=== PATIENT | female | born 1935 | race Caucasian/White ===

== ENCOUNTER 2016-12-14 09:49 | Inpatient (IN) | payer MEDICARE, OTHER ==
[2016-12-14] VITALS (10 sets, daily range): BP systolic 128–179; BP diastolic 69–86; PULSE 74–85; RESP 16–18; TEMP 98–98.8; O2SAT 90–96; Ht 162.6 cm; Wt 79.0 kg
[~2016-12-14] VITALS: Ht 162.6 cm; Wt 79.0 kg
[~2016-12-14 09:49] MED LIST: LISI1TAB45 PO; POTA10CA32 PO; [UNRECOGNIZED DRUG - CODE] PO
--- OUTSIDE RECORDS SUMMARY | 2016-12-14 09:56 | XMS REPORT | Continuity of Care Document ---
Author Author [facility] Organization [facility] Address Unknown Phone Unavailable Support Name Relationship Address Phone CAITY COOK MD Caregiver [address] [place] [id number] Unavailable BETTY ELY MD Caregiver [address] [place] [address] [place] [address] Unavailable DIMITRI SANCHEZ Next Of Kin Unknown [phone] Insurance Providers Guarantor Sammy Sanchez Address [address] [place], [place] [id number] Email DENIED/NO TO PORTAL Payer Other A Insurance Policy Number [id number] Subscriber's Name Sammy Sanchez Relationship 18 Self Group Number [id number] Effective Date 13 Payer Medicare Policy Number [id number] Subscriber's Name OrialonzoSammy J Relationship 18 Self Effective Date 00 Advance Directives Directive Response Recorded Date/Time Advanced Directives Type None 07/01/16 6:43am Chief Complaint and Reason for Visit Chief Complaint Chest Pain Reason for Visit [id number] Problems Past Problems Medical Problem Onset Date Non-ST elevation MD (NSTEMI) Unknown Medications Current Home Medications Medication Dose Units Route Directions Days Qty Instructions Start Date Lisinopril/Hydrochlorothiazide (Zestoretic 20/25 Tablet) 1 Tab Tablet 1 Tab Oral Daily 07/02/08 Potassium Chloride 10 Meq Capsule.sa 10 Meq Oral Daily 07/02/08 Verapamil Hcl (Isoptin Sr) 240 Mg Tablet.sa 240 Mg Oral Daily 11/04 Social History Social History Problem Response Recorded Date/Time Onset Date Status Hx Alcohol Use No 07/01/2016 7:04am Not Applicable Not Applicable Query Response Start Date Stop Date Smoking Status Never smoker Hospital Discharge Instructions No hospital discharge instructions. Plan of Care Discharge Date 07/01/16 8:04am Disposition 02 TO [facility] Condition at Discharge Stable Prescriptions See Medication Section Referrals CAITY COOK MD Address: [address] [place] [address] [phone] Functional Status No functional status results. Allergies, Adverse Reactions, Alerts Allergen Type Severity Reaction Status Last Updated Erythromycin base Allergy Unknown Active 07/01/16 Immunizations Query Response on File Recorded Date/Time Hx Influenza Vaccination Y 200707/02/08 9:09am Hx Pneumococcal Vaccination Y 5 YRS. AGO 07/02/08 9:09am Hx Influenza Vaccination Y 200707/02/08 9:09am Vital Signs Acute Vital Signs Vital Response Date/Time Temperature (Fahrenheit) 97.8 deg F (96.8 - 99.1) 07/01/2016 8:04am Temperature (Calculated Celsius) 36.97830 degrees C (36.0 - 37.3) 07/01/2016 8:04am Pulse Rate (adult) 98 bpm (60 - 100) 07/01/2016 8:04am Respiratory Rate 22 breaths/min (10 - 20) 07/01/2016 8:04am O2 Sat by Pulse Oximetry 97 % (90 - 100) 07/01/2016 8:04am Blood Pressure 149/70 mm Hg 07/01/2016 8:04am Height (Feet) 5 feet 07/01/2016 6:43am Height (Inches) 4.00 inches 07/01/2016 6:43am Weight (Kilograms) 84.500 kg 07/01/2016 6:43am Body Mass Index (BMI) 31.0 07/01/2016 6:43am Results Laboratory Results Test Name Result Units Flags Reference Collection Date/Time Result Date/ Time Comments White Blood Count 11.3 T/MM3 H 4.5-11.0 07/01/2016 7:01am 07/01/2016 7: 07am Red Blood Count 4.76 M/MM3 4.00-5.20 07/01/2016 7:01am 07/01/2016 7: 07am Hemoglobin 13.8 GM/DL -07/01/2016 7:01am 07/01/2016 7:07am Hematocrit 41.5 % 36-46 07/01/2016 7:01am 07/01/2016 7:07am Mean Corpuscular Volume 87.2 UM3 80-100 07/01/2016 7:01am 07/01/2016 7: 07am Mean Corpuscular Hemoglobin 29.0 UUG 26-34 07/01/2016 7:012015 7:07am Mean Corpuscular Hemoglobin Concent 33.3 GM/DL 31-37 07/01/2016 7:0107/01/2016 7:07am RDW Standard Deviation 42.4 FL 36.9-50.2 07/01/2016 7:01am 07/01/2016 7 :07am Platelet Count 256 T/MM3 130-400 07/01/2016 7:0107/01/2016 7:07am Mean Platelet Volume 9.2 UM3 L 9.4-12.4 07/01/2016 7:01am 07/01/2016 7: 07am Neutrophils (%) (Auto) 78.2 % H 33-66 07/01/2016 7:0107/01/2016 7: 07am Lymphocytes (%) (Auto) 14.2 % L 23-45 07/01/2016 7:0107/01/2016 7: 07am Monocytes (%) (Auto) 6.9 % 0-9.0 07/01/2016 7:0107/01/2016 7:07am Eosinophils (%) (Auto) 0.4 % 0-4 07/01/2016 7:0107/01/2016 7:07am Basophils (%) (Auto) 0.2 % 0-2 07/01/2016 7:0107/01/2016 7:07am Immature Granulocyte % (Auto) 0.1 % 0.0-0.5 07/01/2016 7:012015 7:07am Absolute Neutrophils (auto) 8.9 T/MM3 H 1.8-7.7 07/01/2016 7:012015 7:07am Absolute Lymphocytes (auto) 1.6 T/MM3 1-4.8 07/01/2016 7:01am 2015 7:07am Absolute Monocytes (auto) 0.8 T/MM3 0-0.8 07/01/2016 7:01am 07/01/2016 7:07am Absolute Eosinophils (auto) 0.1 T/MM3 0-0.5 07/01/2016 7:01am 2015 7:07am Absolute Basophils (auto) 0.0 T/MM3 0-0.2 07/01/2016 7:01am 07/01/2016 7:07am Absolute Immature Granulocyte (auto 0.01 T/MM3 0.00-0.03 07/01/2016 7: 01am 07/01/2016 7:07am Prothromb Time International Ratio 0.97 L 0.99-1.21 07/01/2016 7:01am 07/01/2016 7:23am THERAPUTIC RANGE=2.00-3.00 FOR ANTI-THROMBOSIS THERAPUTIC RANGE=2.50-3.50 FOR IMPLANTED VALVE D-Dimer 199 NG/ML 0-230 07/01/2016 7:01am 07/01/2016 7:23am <230 NG/ ML D-DU=PRESUMPTIVE NEGATIVE FOR PE OR DVT >230 NG/ML D-DU=ADDITIONAL EVAL FOR PE OR DVT RECOMMENDED Icterus Index < 2 0-7 07/01/2016 7:01am 07/01/2016 7:15am Chemistry Specimen Hemolysis < 15 0-25 07/01/2016 7:01am 07/01/2016 7 :15am 0-25: Specimen Exhibited No Hemolysis. Turbidity < 20 0-20 07/01/2016 7:01am 07/01/2016 7:15am Sodium Level 140 MEQ/L 134-144 07/01/2016 7:01am 07/01/2016 7:15am Potassium Level 3.3 MEQ/L L 3.6-5 07/01/2016 7:01am 07/01/2016 7:15am Chloride Level 96 MEQ/L L 98-107 07/01/2016 7:01am 07/01/2016 7:15am Carbon Dioxide Level 29 MEQ/L 22-30 07/01/2016 7:01am 07/01/2016 7: 15am Anion Gap 15 MEQ/L 5-15 07/01/2016 7:01am 07/01/2016 7:15am Blood Urea Nitrogen 13.0 MG/DL 7-17 07/01/2016 7:01am 07/01/2016 7: 15am Creatinine 0.6 MG/DL L 0.7-1.2 07/01/2016 7:01am 07/01/2016 7:15am BUN/Creatinine Ratio 22 RATIO 6-26 07/01/2016 7:01am 07/01/2016 7:15am Glomerular Filtration Rate Calc 96 07/01/2016 7:07/01/2016 7: 15am Glucose Level 149 MG/DL H 65-110 07/01/2016 7:07/01/2016 7:15am Calculated Osmolality 272 MOSM/KG 261-280 07/01/2016 7:07/01/2016 7:15am Calcium Level 9.9 MG/DL 8.4-10.2 07/01/2016 7:07/01/2016 7:15am Total Bilirubin 0.70 MG/DL 0.20-1.30 07/01/2016 7:07/01/2016 7: 15am Alkaline Phosphatase 101 U/L 38-126 07/01/2016 7:07/01/2016 7: 15am Total Protein 8.4 G/DL H 6.3-8.2 07/01/2016 7:07/01/2016 7:15am Albumin 4.5 G/DL 3.5-5.0 07/01/2016 7:07/01/2016 7:15am Globulin 3.9 G/DL H 2.4-3.6 07/01/2016 7:07/01/2016 7:15am Albumin/Globulin Ratio 1.2 RATIO 1.1-2.2 07/01/2016 7:07/01/2016 7 :15am Aspartate Amino Transf (AST/SGOT) 69 U/L H 14-36 07/01/2016 7:07/01 7:15am Alanine Aminotransferase (ALT/SGPT) 43 U/L 9-52 07/01/2016 7:07/01 7:15am Troponin I 2.180 ng/ml H 0-0.12 07/01/2016 7:07/01/2016 7:27am Troponin values greater than 0.120 ng/ml are considered a critical value. Troponin values with a difference of 55% increase from orginal troponin value represent a true biological DELTA value. (%increase Calc=Orginal Troponin value, divided by subsequent Troponin value, multiplied by 100) QN-Rqh-W-Type Natriuretic Peptide 2480 PG/ML H 0-175 07/01/2016 7:07/01/2016 7:27am Rule in cut points: <50 years old=450; 50-75 years old=900; >75 years old=1800; When utilizing ProBNP rule-in cut points, adjustment for impaired renal function is typically not required. Magnesium Level 1.8 MG/DL 1.6-2.3 07/01/2016 7:01am 07/01/2016 7:15am Procedures No known history of procedures. Encounters Encounter Location Arrival/Admit Date Discharge/Depart Date Attending Provider Departed Emergency Room [facility] 07/01/16 6:42am 07/01/16 8: 04am BETTY ELY MD Recent Diagnosis
--- OUTSIDE RECORDS SUMMARY | 2016-12-14 09:56 | XMS REPORT | Referral Summary ---
Author Author [facility] Organization [facility] Address Unknown Phone Unavailable Care Team Providers Care Clock And Watch Assembler Name Role Phone Maria Alejandra Miller Primary Care Physician [phone] Encounter Date(s): 07/01/16 - 07/07/16 [facility] [address] [place] [address] Discharge Diagnosis: Coronary artery disease Discharge Diagnosis: Non-STEMI (non-ST elevated myocardial infarction) Discharge Disposition: -[facility] Facility Attending Physician: Octavio Oconnell DO Admitting Physician: Mustapha Garland MD Vital Signs Most recent to 1 oldest [Reference Range]: Temperature Oral 36.4 degC [35.8-37.3 degC] (07/07/16 12:31 PM) Temperature Temporal 37.3 degC Artery [36.3-37.8 (07/05/16 8:00 PM) degC] Apical Heart Rate 148 bpm [60-100 bpm] *HI* (07/06/16 4:15 AM) Peripheral Pulse 93 bpm Rate [60-100 bpm] (07/07/16 12:31 PM) Peripheral Pulse 138 bpm Rate with Activity (07/06/16 9:03 AM) Heart Rate Monitored 100 bpm [60-100 bpm] (07/06/16 5:49 PM) Respiratory Rate 20 br/min [14-20 br/min] (07/07/16 12:31 PM) Blood Pressure 124/77 mmHg [90-140/60-90 mmHg] (07/07/16 12:31 PM) Systolic Blood 139 mmHg Pressure with (07/06/16 9:03 AM) Activity Diastolic Blood 83 mmHg Pressure with (07/06/16 9:03 AM) Activity Mean Arterial 106 mmHg Pressure, Cuff (07/05/16 8:00 PM) Blood Pressure 103/52 mmHg Invasive (07/03/16 2:00 PM) [90-140/60-90 mmHg] Mean Arterial 72 mmHg Pressure, Invasive (07/03/16 2:00 PM) SpO2 95 % (07/07/16 12:31 PM) Remote Telemetry Ongoing (07/06/16 9:00 PM) Problem List Condition Effective Dates Status Health Status Informant Acute Active pain(Confirmed) At risk of pressure Active sore(Confirmed) Benign essential Active hypertension (disorder)(Confirmed ) Cardiac Active disorder(Confirmed)1 Hypertension(Confirm Resolved ed) Impaired skin Active integrity(Confirmed) 2 Obesity(Confirmed) Active patient Tissue perfusion Active alteration(Confirmed )3 1Problem added automatically by system based on initiation of Cardiac Output/ Ineffective Cardiac Perfusion Plan of Care 2Problem added automatically by system based on initiation of Impaired Skin Integrity Plan of Care 3Problem added automatically by system based on initiation of Tissue Perfusion Cerebral Plan of Care Allergies, Adverse Reactions, Alerts Substance Reaction Severity Status erythromycin GI problems Active Medications acetaminophen 325 mg oral tablet 650 mg 2 tabs, Oral, q4hr, Fever, 0 Refill(s) Start Date: 07/07/16 Status: Ordered amiodarone 200 mg oral tablet 200 mg 1 tabs, Oral, BID, 0 Refill(s) Start Date: 07/07/16 Status: Ordered aspirin 81 mg oral delayed release tablet 81 mg 1 tabs, Oral, Daily, 0 Refill(s) Start Date: 07/07/16 Status: Ordered atorvastatin 80 mg oral tablet 80 mg 1 tabs, Oral, Daily, 0 Refill(s) Start Date: 07/07/16 Status: Ordered Colace 100 mg oral capsule 200 mg 2 caps, Oral, Daily, 0 Refill(s) Start Date: 07/07/16 Status: Ordered heparin 5000 units/mL injectable solution 5,000 units 1 mL, SubCutaneous, q8hr (scheduled), 0 Refill(s) Start Date: 07/07/16 Status: Ordered Lasix 20 mg oral tablet 20 mg 1 tabs, Oral, BID, 0 Refill(s) Start Date: 07/07/16 Stop Date: 07/14/16 Status: Ordered Maalox Advanced Maximum Strength oral suspension 15 mL, Oral, q4hr, GERD/Heartburn, 0 Refill(s) Start Date: 07/07/16 Status: Ordered magnesium oxide 400 mg (241.3 mg elemental magnesium) oral tablet 800 mg 2 tabs, Oral, BID, 0 Refill(s) Start Date: 07/07/16 Stop Date: 07/10/16 Status: Ordered metoprolol tartrate 25 mg oral tablet 25 mg 1 tabs, Oral, BID, 0 Refill(s) Start Date: 07/07/16 Status: Ordered MiraLax 17 g 1 packets, Oral, Daily, 0 Refill(s) Start Date: 07/07/16 Status: Ordered naloxone 0.4 mg/mL injectable solution 0.4 mg 1 mL, IV Push, Daily, Opiate Reversal, 0 Refill(s) Start Date: 07/07/16 Status: Ordered Nitrostat 0.4 mg sublingual tablet 0.4 mg 1 tabs, SubLingual, q5min, Angina/Chest Pain, 0 Refill(s) Start Date: 07/07/16 Status: Ordered Gallatin 5 mg-325 mg oral tablet 1-2 tabs, Oral, q4hr, Pain Moderate (4-6), # 50 tabs, 0 Refill(s) Start Date: 07/07/16 Stop Date: 07/15/16 Status: Ordered pantoprazole 40 mg oral delayed release tablet 40 mg 1 tabs, Oral, Before Breakfast, 0 Refill(s) Start Date: 07/07/16 Status: Ordered potassium chloride 20 mEq oral tablet, extended release 20 mEq 1 tabs, Oral, Daily, 0 Refill(s) Start Date: 07/07/16 Stop Date: 07/14/16 Status: Ordered Results Blood Gases Most recent to 1 oldest [Reference Range]: pH [7.35-7.45] 7.40 (07/03/16 5:14 AM) PCO2 Arterial POC 40 mmHg [35-45 mmHg] (07/02/16 5:32 PM) pCO2 Art [35-45 40 mmHg mmHg] (07/03/16 5:14 AM) CO2 Totl Art [23-27 26 mEq/L mEq/L] (07/02/16 5:32 PM) Bicarbonate [22-26 24 mEq/L mEq/L] (07/03/16 5:14 AM) Bicarbonate Arterial 25 mEq/L POC [22-26 mEq/L] (07/02/16 5:32 PM) Base Excess Arterial 0 POC [0-2] (07/02/16 5:32 PM) Base Excess Art 0 [0-2] (07/03/16 5:14 AM) O2 Sat Art 96.6 % [90.0-97.0 %] (07/03/16 5:14 AM) pO2 Art [80-100 87 mmHg mmHg] (07/03/16 5:14 AM) O2 Saturation 100.0 % Arterial POC *HI* [90.0-97.0 %] (07/02/16 5:32 PM) pH Arterial POC 7.40 [7.35-7.45] (07/02/16 5:32 PM) PO2 Arterial POC 408 mmHg [80-100 mmHg] *HI* (07/02/16 5:32 PM) LPM Art 2.0 L/min (07/03/16 5:14 AM) O2 Panel Nasal Cannula (07/03/16 5:14 AM) Vent Mode AC (07/02/16 6:14 PM) Set Vt 500 mL (07/02/16 6:14 PM) Set Rate 14 br/min (07/02/16 6:14 PM) FiO2 Art [0-100] 40 (07/02/16 9:02 PM) PEEP 5.0 (07/02/16 9:02 PM) Inspiratory Time Art 1.00 seconds (07/02/16 6:14 PM) Tubing Compensation 100 % (07/02/16 9:02 PM) Total Rate 14 br/min (07/03/16 5:14 AM) Spon Vt 464 mL (07/02/16 9:02 PM) Spec Site A-Line (07/03/16 5:14 AM) Hematology Most recent to 1 oldest [Reference Range]: WBC [4.8-10.8 10.2 10*3/uL 10*3/uL] (07/07/16 5:53 AM) RBC [4.00-5.20] 3.07 *LOW* (07/07/16 5:53 AM) Hgb [12.0-16.0 8.8 gm/dL gm/dL] *LOW* (07/07/16 5:53 AM) Hct [37.0-47.0 %] 27.1 % *LOW* (07/07/16 5:53 AM) MCV [82.0-99.0 fL] 88.3 fL (07/07/16 5:53 AM) MCH [27.0-32.0 pg] 28.7 pg (07/07/16 5:53 AM) MCHC [32.0-36.0 32.5 gm/dL gm/dL] (07/07/16 5:53 AM) RDW [11.5-14.5 %] 14.7 % *HI* (07/07/16 5:53 AM) Platelet [150-400 219 10*3/uL 10*3/uL] (07/07/16 5:53 AM) MPV [9.4-12.4 fL] 9.8 fL (07/07/16 5:53 AM) Coagulation Most recent to 1 oldest [Reference Range]: INR [0.9-1.2] 1.9 *HI* (07/02/16 4:46 PM) PTT [25.0-35.0 31.5 seconds seconds] (07/02/16 4:46 PM) Fibrinogen Lvl 203 mg/dL [187-520 mg/dL] (07/02/16 4:46 PM) Chemistry Most recent to 1 oldest [Reference Range]: Sodium Lvl [136-144 137 mEq/L mEq/L] (07/07/16 5:53 AM) Potassium Lvl 4.0 mEq/L [3.6-5.1 mEq/L] (07/07/16 5:53 AM) Chloride [99-109 102 mEq/L mEq/L] (07/07/16 5:53 AM) CO2 [22-32 mEq/L] 27 mEq/L (07/07/16 5:53 AM) AGAP [3-20] 8 (07/07/16 5:53 AM) BUN [4-20 mg/dL] 11 mg/dL (07/07/16 5:53 AM) Glucose Lvl [70-100 122 mg/dL mg/dL] *HI* (07/07/16 5:53 AM) Creatinine Lvl 0.59 mg/dL [0.44-1.03 mg/dL] (07/07/16 5:53 AM) eGFR [>60] >60 1 (07/07/16 5:53 AM) Calcium Lvl 8.5 mg/dL [8.6-10.0 mg/dL] *LOW* (07/07/16 5:53 AM) Albumin Lvl [3.5-4.8 2.6 gm/dL gm/dL] *LOW* (07/05/16 4:28 AM) Total Protein 7.1 gm/dL [6.1-7.9 gm/dL] (07/01/16 12:26 PM) Globulin [1.9-4.3 3.4 gm/dL gm/dL] (07/01/16 12:26 PM) ALT [14-54 U/L] 33 U/L (07/01/16 12:26 PM) AST [15-41 U/L] 113 U/L *HI* (07/01/16 12:26 PM) Alk Phos [26-104 83 U/L U/L] (07/01/16 12:26 PM) Bili Total [0.2-1.2 0.5 mg/dL 2 mg/dL] (07/01/16 12:26 PM) Magnesium Lvl 1.8 mg/dL [1.8-2.5 mg/dL] (07/07/16 5:53 AM) Phosphorus [2.4-4.7 1.7 mg/dL 3 mg/dL] *LOW* (07/05/16 4:28 AM) Calcium Ionized 1.24 mmol/L [1.19-1.41 mmol/L] (07/04/16 3:15 AM) Troponin [<0.06 27.45 ng/mL 4 ng/mL] *HHI* (07/02/16 6:00 PM) Sodium Arterial NPT 140 mEq/L [136-144 mEq/L] (07/02/16 5:32 PM) Potassium Arterial 2.9 mEq/L 5 NPT [3.6-5.1 mEq/L] *LOW* (07/02/16 5:32 PM) Calcium Ionized 1.03 mmol/L Arterial NPT *LOW* [1.19-1.41 mmol/L] (07/02/16 5:32 PM) HCT Arterial NPT 24.0 % (07/02/16 5:32 PM) HGB Arterial NPT 8.2 gm/dL (07/02/16 5:32 PM) Arterial Glucose NPT 149 mg/dL [70-100 mg/dL] *HI* (07/02/16 5:32 PM) Activated Clotting 137 seconds Time NPT [100-146 (07/02/16 4:46 PM) seconds] Blood Glucose, 202 mg/dL Capillary [74-106 *HI* mg/dL] (07/07/16 1:31 PM) Chol [0-200 mg/dL] 189 mg/dL (07/01/16 10:02 AM) Trig [0-150 mg/dL] 60 mg/dL (07/01/16 10:02 AM) HDL [>40 mg/dL] 49 mg/dL (07/01/16 10:02 AM) LDL [0-100 mg/dL] 128 mg/dL *HI* (07/01/16 10:02 AM) VLDL Cholesterol 12 mg/dL [0-30 mg/dL] (07/01/16 10:02 AM) Cardiac Risk 3.9 [0.0-5.0] (07/01/16 10:02 AM) Hgb A1c [4.1-5.6 %] 5.9 % *HI* (07/01/16 12:26 PM) eAvg Glucose 122.6 mg/dL (07/01/16 11:18 AM) 1Result Comment: Multiply eGFR results by 1.21 for race. 2Result Comment: Naproxen, specifically the metabolite O-desmethylnaproxen, may cause spurious elevation in Total Bilirubin levels. 3Result Comment: High dosages of liposomal Amphotericin B (AmBisome) therapy or other drug preparations that use a liposomal envelope to facilitate drug delivery may cause falsely elevated results for phosphorus. 4Result Comment: Critical value called, and read-back verified. Called to Daniella Smith RN ([id number]) 07/02/2016 20:14 5Result Comment: This test was performed on a whole blood specimen. The presence or absence of hemolysis cannot be assessed. Hemolysis can falsely elevate potassium levels. Normals are for venous specimens only. Urinalysis Most recent to 1 oldest [Reference Range]: UA Color Straw (07/01/16 12:56 PM) UA Appear Clear (07/01/16 12:56 PM) UA pH [5.0-8.0] 6.0 (07/01/16 12:56 PM) UA Leuk Est Negative [Negative] (07/01/16 12:56 PM) UA Nitrite Negative [Negative] (07/01/16 12:56 PM) UA Protein Negative [Negative] (07/01/16 12:56 PM) UA Glucose Negative [Negative] (07/01/16 12:56 PM) UA Ketones Trace [Negative] *ABN* (07/01/16 12:56 PM) UA Urobilinogen Negative [<1.0] (07/01/16 12:56 PM) UA Bili [Negative] Negative (07/01/16 12:56 PM) UA Blood [Negative] Pos 2+ *ABN* (07/01/16 12:56 PM) UA Spec Grav 1.030 [1.003-1.030] (07/01/16 12:56 PM) Type Clean Catch (07/01/16 12:56 PM) UA WBC [0-4] 2-5 (07/01/16 12:56 PM) UA RBC [0-2] 0-2 (07/01/16 12:56 PM) Epithelial Cells None Seen (07/01/16 12:56 PM) UA Bacteria None Seen (07/01/16 12:56 PM) UA Hyal Cast [0-3] 1-3 (07/01/16 12:56 PM) UA Mucous Present (07/01/16 12:56 PM) Blood Bank Results Most recent to 1 oldest [Reference Range]: ABO/Rh A POS (07/01/16 12:26 PM) Antibody Screen Tube NEG (07/01/16 12:26 PM) Immunizations Vaccine Date Refusal Reason influenza virus vaccine, inactivated 07/06/16 pneumococcal 23-polyvalent vaccine 01/22/12 tetanus-diphth toxoids (Td) adult/adol 12/31/06 zoster vaccine live 01/19/11 Procedures Procedure Date Related Diagnosis Body Site Bypass Graft Coronary Artery1 07/02/16 Stanley Vein Endoscopic (Left)2 07/02/16 Catheterization Left Heart with Coronary 07/01/16 Angiography3 1auto-populated from documented surgical case 2auto-populated from documented surgical case 3auto-populated from documented surgical case Social History Social History Type Response Smoking Status Never smoker Assessment and Plan No data available for this section
--- NOTE | 2016-12-14 10:10 | NUR ---
EKG OBTAINED AND RESULTS GIVEN TO
[2016-12-14] MEDS ORDERED: NITR0.4T39 PO (10:22)
[2016-12-14] MEDS ORDERED: AMIO200T2 PO (10:22)
[2016-12-14] MEDS ORDERED: LORA0.5T2 PO (10:22)
[2016-12-14] MEDS ORDERED: METO50TA5 PO (10:24)
[2016-12-14] MEDS ORDERED: LOSA100T44 PO (10:24)
[2016-12-14] MEDS ORDERED: VENL-67 PO (10:24)
[2016-12-14] MEDS ORDERED: ATOR80TA76 PO (10:24)
[2016-12-14] MEDS ORDERED: ACET-62 PO (10:25)
--- NOTE | 2016-12-14 10:48 | ERPDOC ---
Departure Impression Impression Referrals: CAITY COOK MD (Family) Mental Status: Alert, Oriented HPI - Dyspnea General Chief Complaint: Dyspnea/Respdistress Stated Complaint: O2 LEVEL LOW Time Seen by Provider: 10:47 HPI - Dyspnea Initial Comments 81-year-old female with sudden onset of shortness of breath. 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 She has done very well since that time. But now is develop shortness of breath. No fever or chills, no chest pain at this time. Allergies: Coded Allergies: erythromycin base (Verified Allergy, Unknown, 07/01/16) Past History Past Medical History Metabolic: hypertension Vaccines Hx Influenza Vaccination: Yes (2007) Hx Pneumococcal Vaccination: Yes (5 YRS. AGO) Social History Substance Use Type: does not use Alcohol Intake: none Physical Exam General Vitals and Pain Weight: Kilograms: Height (feet): 5 Height (inches): 4.00 Triage Pain Scale: EV HAYS MD December 14, 2016 10:48
[2016-12-14] MEDS ORDERED: NORMAL SALINE 1,000 ML IV ONE (10:50)
[2016-12-14] MEDS ORDERED: ALBUTEROL/IPRATROPIUM INHAL. 2.5mg-0.5mg/3ml Neb. AEROSOL ONE (11:00)
[2016-12-14 11:42] LABS: HCT - HEMATOCRIT 36.7 % (36-46); HGB - HEMOGLOBIN 11.9 GM/DL (12-16); MEAN CORPUSCULAR HGB 28.3 UUG (26-34); MEAN CORPUSCULAR HGB CONC(MCHC 32.4 GM/DL (31-37); MEAN CORPUSCULAR VOLUME 87.2 UM3 (80-100); MEAN PLATELET VOLUME 10.2 UM3 (9.4-12.4); RED BLOOD COUNT 4.21 M/MM3 (4.00-5.20); WBC - WHITE BLOOD COUNT 15.4 T/MM3 (4.5-11.0)
--- NOTE | 2016-12-14 11:44 | NUR ---
RETURNED FROM RADIOLOGY
[2016-12-14 11:49] LABS: INR 1.16 (0.77-1.03); PROTHROMBIN TIME 12.7 SEC (9.48-12.52)
[2016-12-14 11:51] LABS: ALBUMIN 3.7 G/DL (3.5-5.0); ALBUMIN/GLOBULIN RATIO 1.1 RATIO (1.1-2.2); ALKALINE PHOSPHATASE 137 U/L (38-126); ALT (SGPT) 102 U/L (9-52); ANION GAP 14 MEQ/L (5-15); AST (SGOT) 70 U/L (14-36); BUN/CREATININE RATIO 22 RATIO (6-26); CALCIUM 9.1 MG/DL (8.4-10.2); CHLORIDE 101 MEQ/L (98-107); CO2 - CARBON DIOXIDE 29 MEQ/L (22-30); CREATININE 0.5 MG/DL (0.7-1.2); GLOMERULAR FILTRATION RATE 118; GLUCOSE 152 MG/DL (65-110); POTASSIUM 3.3 MEQ/L (3.6-5); SODIUM 144 MEQ/L (134-144)
[2016-12-14 11:59] LABS: BAND NEUTROPHILS # 0.2 T/MM3; BASOPHILS # (MANUAL) 0.2 T/MM3 (0-0.2); LYMPHOCYTES # (MANUAL) 0.8 T/MM3 (1-4.8); MONOCYTES # (MANUAL) 1.1 T/MM3 (0-0.8); NEUTROPHILS #(MANUAL)-ABSOLUTE 13.2 T/MM3 (1.8-7.7); POIKILOCYTOSIS 1+; TOTAL CELLS COUNTED 100 %
--- NOTE | 2016-12-14 12:01 | DI ---
INDICATION: ITS.REASON: dyspnea PROCEDURE: CHEST 2-VIEWS UPRIGHT (PA \T\ LAT) Encounter: Initial COMPARISON: July 01, 2016 FINDINGS: Patchy airspace and interstitial opacities throughout both lungs with a perihilar predominance. No pneumothorax or pleural effusion. Postoperative changes of prior CABG, new from the prior. Cardiac silhouette is mildly enlarged. Mediastinal contours and pulmonary vascularity are indistinct. Impression: Bilateral patchy airspace and interstitial opacities could be due to pulmonary edema and/or severe pneumonia. Recommend clinical and laboratory correlation. .
[2016-12-14 12:03] LABS: PROBNP 4820 PG/ML (0-175)
[2016-12-14] MEDS ORDERED: SALINE FLUSH 10ml SYRINGE ONE (12:07)
[2016-12-14] MEDS ORDERED: NORMAL SALINE 100 ML ONE (12:07)
[2016-12-14] MEDS ORDERED: IOHEXOL 350 MG/ML 75ml INJECTION ONE (12:07)
--- NOTE | 2016-12-14 12:39 | DI ---
Indication: ITS.REASON: acute dyspnea, elevated d-dimer PROCEDURE: CTA PULMONARY EMBOLI: Encounter: Initial Comparison: Chest x-ray from today Technique: Axial CT pulmonary angiographic phase images were performed through the chest after the administration of intravenous contrast. Coronal and Sagittal MIP reconstructed images were created and reviewed. Automated Exposure Control and Iterative Reconstruction dose reducing techniques were utilized. Contrast: Omnipaque 350 70 mL Findings: Pulmonary arteries: Exam is diagnostic to the subsegmental pulmonary arterial level. No filling defects identified to suggest a pulmonary embolus. Other findings: Diffuse groundglass type opacities with evidence of interlobular septal thickening seen with a basilar and perihilar predominance. There is some mild bronchiectasis noted in both lower lobes, likely chronic. No pleural effusion or pneumothorax. The central airways are patent. No axillary or mediastinal adenopathy. Heart is moderately enlarged. No pericardial effusion. Prior CABG. The upper abdomen shows no acute findings. Impression: 1. No pulmonary embolus. 2. Diffuse groundglass opacities and areas of septal thickening with a pattern most suggestive of moderate pulmonary edema, probably due to congestive failure. .
--- NOTE | 2016-12-14 13:00 | NUR ---
STATUS ASSISTED PATIENT TO BATHROOM AT THIS TIME. SOME RESP. DISTRESS NOTED. PATIENT CONTINUES TO BE ON 2 LITERS PER NC
[2016-12-14] MEDS ORDERED: CEFTRIAXONE I.V. (ER USE ONLY) 1 G in NORMAL SALINE 100 ML IV ONE (14:00)
--- NOTE | 2016-12-14 14:02 | NUR ---
ROCEPHIN IV INFUSION STARTED AT THIS TIME
[2016-12-14] MEDS ORDERED: AZITHROMYCIN 500 MG in NORMAL SALINE 250 ML IV SCH (14:15)
[2016-12-14] MEDS ORDERED: FUROSEMIDE 20 MG/2 ML INJECTION IV ONE (14:15)
--- NOTE | 2016-12-14 14:21 | HPPDOC ---
RHODA HERNÁNDEZ V SALES NEGOTIATOR 12/14/16 1410: HPI - Adult Date DATE: 12/14/16 TIME: 14:07 General Chief Complaint: SHORTNESS OF BREATH History of Present Illness Ruth is a 81 yr old female who presented to PCP Dr Miller office today for evaluation. She was found to be hypoxia in the 60's. She was then sent to [facility] emergency room for further medical evaluation. On arrival to the emergency room. She was found to be hypoxic with room air saturations of 78%. Her temperature is 99.8, pulse rate in the 60s, respiration rate 24, blood pressure was elevated at 196/88. Further medical evaluation was obtained , including laboratory studies, chest x-ray and CT scan. Patient was found have an elevated white count at 15.4, hemoglobin 11.9, hematocrit 36.7, platelet count 309, neutrophils 86%. Sodium is 144, potassium 3.3, BUN 11, creatinine 0.5, glucose 152. LFTs were found to be elevated with AST of 70 and ALT of 102. ProBNP 4820, troponin 0.019. INR 1.16, d-dimer 414. Chest x-ray did reveal bilateral patchy airspace opacities representing edema or pneumonia. Given her significant hypoxia and elevated d-dimer. ABG revealed pH 7.52, pCO2 36, pO2 65, bicarbonate 29. A CT scan of the chest was performed. No evidence of pulmonary emboli. However, again, diffuse groundglass opacities bilaterally. Continue to require oxygen by nasal cannula to maintain adequate saturations. She did get up and ambulate to the bathroom with staff. However, upon returning sats did decrease to 70%. Patient approximately 15 minutes on oxygen to recover to normal saturations. Given these findings, Hospital services were contacted and accepted patient for inpatient mission for further eval patient and treatment. Seen on initial examination. She is alert, oriented and pleasant. She reports that she has felt more short of breath for the last 2-3 days. She denies having any fevers or chills, no chest pain, or GI complaints. She states that she sees Dr. 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 She reports that she had an echocardiogram in the beginning of 2016. She states that overall she has been doing well since her bypass in June 2016. Her Lasix has been discontinued by the potato peeling machine operator as she was instructed that she did not need it any longer. 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 Surgical History Patient's Surgical History: 3 Bypass- 06/2016 Heart catheter-06/2016 Tonsillectomy age 5 Current Medications Home Meds Reported Medications Acetaminophen (Acetaminophen) 500 Mg Tablet, 1000 MG PO Q8H Y for PAIN 12/14/16 Venlafaxine HCl (Venlafaxine HCl ER) 37.5 Mg Cap.er.24h, 37.5 MG PO HS 12/14/16 Atorvastatin Calcium (Atorvastatin Calcium) 80 Mg Tablet, 80 MG PO HS 12/14/16 Losartan Potassium (Losartan Potassium) 100 Mg Tablet, 50 MG PO BID 12/14/16 Metoprolol Tartrate (Metoprolol Tartrate) 50 Mg Tablet, 50 MG PO BID 12/14/16 Lorazepam (Lorazepam) 0.5 Mg Tablet, 0.5 MG PO TID Y for ANXIETY 12/14/16 Nitroglycerin (Nitroglycerin) 0.4 Mg Tab.subl, 0.4 MG PO Q5MIN Y for CHEST PAIN 12/14/16 Amiodarone HCl (Amiodarone HCl) 200 Mg Tablet, 200 MG PO BID 12/14/16 Allergies: Coded Allergies: erythromycin base (Verified Allergy, Unknown, 07/01/16) Family History Family History: Father- stated age 69. Unknown cause, questionable cardiac Mother-hypertension Social History Smoking Status: Never smoker Substance Use Type: does not use Alcohol Intake: none Marital Status: Single Housing: house Advance Directives: Yes DNR Social History Comments Primary care provider, Dr. Miller Vp Sales Dr Gui Oconnell Review of Systems Cardiovascular dyspnea on exertion Pulmonary Respiratory: dyspnea, tachypnea All Other Systems All Other Systems: Reviewed (remainder of 10-point ROS Neg.) Physical Exam General General Nourishment: well nourished, well developed Vital Signs Vital Signs Date Time Temp Pulse Resp B/P Pulse Ox O2 Delivery O2 Flow Rate FiO2 12/14/16 11:24 20 12/14/16 11:18 67 95 Nasal Cannula 2.00 12/14/16 09:50 99.8 196/88 Height (Feet): 5 Height (Inches): 4.00 Eyes Brief: FOUND: EOMI, PERRL ENMT Brief: FOUND: mucosa moist, normal dentition, NOT FOUND: pharnyx erythema Neck Brief: FOUND: midline, NOT FOUND: adenopathy, carotid bruits, tracheal deviation Comments Course bilateral bases Cardiovascular (brief) Cardiac Brief: FOUND: regular rate, regular rhythm, NOT FOUND: murmur, pedal edema Abdomen (brief) Abdominal Brief: FOUND: BS normo active x4, soft, NOT FOUND: distended, tender Integumentary (brief) Integumentary Brief: FOUND: dry, pink, warm Neurologic (brief) Neurological Brief: FOUND: cranial 2-12 intact Neurologic RN Documented GCS Eye Opening: Verbal: Motor: Total: Psychiatric (brief) FOUND: alert, attentive, normal affect, oriented Laboratory Laboratory Tests Test 12/14/16 11:04 12/14/16 12:52 White Blood Count 15.4T/MM3 Red Blood Count 4.21M/MM3 Hemoglobin 11.9GM/DL Hematocrit 36.7% Mean Corpuscular Volume 87.2UM3 Mean Corpuscular Hemoglobin 28.3UUG Mean Corpuscular Hemoglobin Concent 32.4GM/DL RDW Standard Deviation 50.3FL Platelet Count 309T/MM3 Mean Platelet Volume 10.2UM3 Immature Granulocyte % (Auto) % Neutrophils (%) (Auto) % Lymphocytes (%) (Auto) % Monocytes (%) (Auto) % Eosinophils (%) (Auto) % Basophils (%) (Auto) % Absolute Immature Granulocyte (auto T/MM3 Absolute Neutrophils (auto) T/MM3 Absolute Lymphocytes (auto) T/MM3 Absolute Monocytes (auto) T/MM3 Absolute Eosinophils (auto) T/MM3 Absolute Basophils (auto) T/MM3 Neutrophils % (Manual) 86.0% Band Neutrophils % 1.0% Lymphocytes % (Manual) 5.0% Monocytes % (Manual) 7.0% Basophils % (Manual) 1.0% Absolute Neutrophils (Manual) 13.2T/MM3 Band Neutrophils # 0.2T/MM3 Lymphocytes # (Manual) 0.8T/MM3 Monocytes # (Manual) 1.1T/MM3 Basophils # (Manual) 0.2T/MM3 Poikilocytosis 1+ Red Cell Morphology Comment Abnormal Prothromb Time International Ratio 1.16 D-Dimer 414NG/ML Turbidity < 20 Sodium Level 144MEQ/L Potassium Level 3.3MEQ/L Chloride Level 101MEQ/L Carbon Dioxide Level 29MEQ/L Anion Gap 14MEQ/L Blood Urea Nitrogen 11.0MG/DL Creatinine 0.5MG/DL Glomerular Filtration Rate Calc 118 BUN/Creatinine Ratio 22RATIO Glucose Level 152MG/DL Calculated Osmolality 279MOSM/KG Calcium Level 9.1MG/DL Total Bilirubin 1.00MG/DL Icterus Index < 2 Aspartate Amino Transf (AST/SGOT) 70U/L Alanine Aminotransferase (ALT/SGPT) 102U/L Alkaline Phosphatase 137U/L Troponin I 0.019ng/ml VS-Pxw-N-Type Natriuretic Peptide 4820PG/ML Total Protein 7.0G/DL Albumin 3.7G/DL Globulin 3.3G/DL Albumin/Globulin Ratio 1.1RATIO Chemistry Specimen Hemolysis < 15 Arterial Blood pH 7.520 Arterial Blood Partial Pressure CO2 36MMHG Arterial Blood pO2 at Patient Temp 65MMHG Arterial Blood HCO3 29MEQ/L Arterial Blood Total CO2 30.5MEQ/L Arterial Blood Oxygen Saturation 95.0% Arterial Blood Base Excess 6.3MMOL/L Oxygen Delivery Method (LAB) Nasal cannula,liters Blood Gas Oxygen Liter Flow 2 Blood Gas Oxygen Percent Given Blood Gas Vent Rate Blood Gas Tidal Volume ML Assessment & Plan Problems: (1) Sepsis Status: Acute Assessment & Plan: Manifestations of sepsis include the following 1. Pneumonia 2. Respiratory failure with hypoxia requiring oxygen to maintain saturations 3. Leukocytosis, WBC count 15 (2) CAP (community acquired pneumonia) Status: Acute (3) Respiratory failure with hypoxia Status: Acute Qualifiers: Chronicity: acute Qualified Codes: J96.01 - Acute respiratory failure with hypoxia (4) Leukocytosis Status: Acute Assessment & Plan: Present on admission (5) Elevated LFTs Status: Acute (6) Hypokalemia Status: Acute Assessment & Plan: Present on admission (7) CAD (coronary artery disease) of bypass graft Status: Chronic (8) HTN (hypertension) Status: Chronic Plan/Intensity of Service Admit patient to inpatient status under the care of Dr. Hough for sepsis, community-acquired pneumonia with hypoxia Patient does meet sepsis criteria, given findings of pneumonia, hypoxia and leukocytosis. Will obtain venous lactate and pro-calcitonin on admission. Blood cultures were obtained in the emergency room. Patient started on Rocephin 1 gram IV daily as well as a azithromycin 500 milligrams IV daily for antimicrobial coverage. Will monitor elevated LFTs. It may be elevated from systemic response to sepsis process Continue with oxygen therapy to maintain adequate saturations. Will also scheduled DuoNeb breathing treatments 4 times a day Will obtain an Echocardiogram for further cardiac evaluation Give a one time dose of Lasix 20 mg IV for fluid motivation. May need scheduled diuresis seen. Monitor patient on cardiac telemetry SCDs to bilateral lower ext for DVT prophylaxis Have asked nursing staff to old records from [facility]'s office. Patient states that she did have a ECHO in the beginning 2016. Recehck CBC and CMP tomorrow to follow blood counts, renal function, electrolytes and LFT. PORT score mortality risk indicator showing 9.3% of mortality related to infection Again patient requests DNR and this order is written. Will discuss further plan of care with attending, Dr. Hough. At time of discharge medical care will return to primary care provider, Dr. Miller DVT Prophylaxis: SCD'S Code Status DNR Hospital Course Summary Disclaimer The hospital course summary below is not to be considered part of the above Progress Note. Hospital Course Summary Admit patient to inpatient status under the care of Dr. Hough for sepsis, community-acquired pneumonia with hypoxia Patient does meet sepsis criteria, given findings of pneumonia, hypoxia and leukocytosis. Will obtain venous lactate and pro-calcitonin on admission. Blood cultures were obtained in the emergency room. Patient started on Rocephin 1 gram IV daily as well as a azithromycin 500 milligrams IV daily for antimicrobial coverage. Will monitor elevated LFTs. It may be elevated from systemic response to sepsis process Continue with oxygen therapy to maintain adequate saturations. Will also scheduled DuoNeb breathing treatments 4 times a day Will obtain an Echocardiogram for further cardiac evaluation Give a one time dose of Lasix 20 mg IV for fluid motivation. May need scheduled diuresis seen. Monitor patient on cardiac telemetry SCDs to bilateral lower ext for DVT prophylaxis Have asked nursing staff to old records from [facility]'s office. Patient states that she did have a ECHO in the beginning 2016. Recehck CBC and CMP tomorrow to follow blood counts, renal function, electrolytes and LFT. PORT score mortality risk indicator showing 9.3% of mortality related to infection Again patient requests DNR and this order is written. Will discuss further plan of care with attending, Dr. Hough. At time of discharge medical care will return to primary care provider, ALLYSON Gillespie MD 12/14/162001: Past Medical History Current Medications Home Meds Reported Medications Acetaminophen (Acetaminophen) 500 Mg Tablet, 1000 MG PO Q8H Y for PAIN 12/14/16 Venlafaxine HCl (Venlafaxine HCl ER) 37.5 Mg Cap.er.24h, 37.5 MG PO HS 12/14/16 Atorvastatin Calcium (Atorvastatin Calcium) 80 Mg Tablet, 80 MG PO HS 12/14/16 Losartan Potassium (Losartan Potassium) 100 Mg Tablet, 50 MG PO BID 12/14/16 Metoprolol Tartrate (Metoprolol Tartrate) 50 Mg Tablet, 50 MG PO BID 12/14/16 Lorazepam (Lorazepam) 0.5 Mg Tablet, 0.5 MG PO TID Y for ANXIETY 12/14/16 Nitroglycerin (Nitroglycerin) 0.4 Mg Tab.subl, 0.4 MG PO Q5MIN Y for CHEST PAIN 12/14/16 Amiodarone HCl (Amiodarone HCl) 200 Mg Tablet, 200 MG PO BID 12/14/16 Allergies: Coded Allergies: erythromycin base (Verified Allergy, Unknown, 07/01/16) Assessment & Plan Assessment Patient seen and examined in conjunction with nurse practitioner actually Jethro . Patient does have significant hypoxia but does not have a very toxic appearance and I believe that the majority of her dyspnea is secondary to her congestive heart failure. Appreciation to Dr. Chavez for his participation in this patient's cardiac care. She does meet sepsis criteria and will have antibiotics run, however it quickly normalizing leukocytosis and lack of fever would be further evidence of CHF being predominant. Use IV fluids should be cautious and fluid resuscitation at 30 mg per kilogram should be avoided at this time. Patient certainly meets inpatient criteria, and will likely take 2 to 3 days to improved transitioned home RHODA HERNÁNDEZ APRN December 14, 2016 14:10 ALLYSON HOUGH MD December 14, 2016 20:02
--- NOTE | 2016-12-14 14:30 | NUR ---
ADMIT PATIENT IS ADMITTED FROM THE ER. ARRIVES TO ROOM 155 PER CART. ON 3 L NC. RUNS HIGH BP AT THIS TIME. PATIENT IS ALERT AND ORIENTED. ROCEPHIN IS INFUSING FROM ER. PATIENT IS AMBULATORY WITH ONE ASSIST. PATIENT IS ORIENTED TO ROOM AND SURROUNDING ENVIRONMENT.
[2016-12-14] MEDS ORDERED: POTASSIUM CHLORIDE 20 MEQ TABLET PO ONE (15:30)
--- NOTE | 2016-12-14 15:47 | NUR ---
Allergy Note: Patient indicated she had an adverse reaction (severe vomting)to erythromycin. Azithromycin 500 mg iv every 24 hours was ordered. Since they are both macrolides and both can cause vomiting, I called Afia Morelos, the ordering provider, and discussed the issue. She decided to discontinue the azithromycin. Rustam Valencia, Pharmacist
[2016-12-14] MEDS: BUMETANIDE 2.5mg INJECTION IV SCH (16:20)
[2016-12-14] MEDS: LEVOFLOXACIN 500 mg IVPB 500 MG in D5W 100 ML IV SCH (16:37)
[2016-12-14] MEDS: ALBUTEROL/IPRATROPIUM INHAL. 2.5mg-0.5mg/3ml Neb. AEROSOL SCH ×2 (16:54→20:50)
--- NOTE | 2016-12-14 17:14 | CONSPD ---
KALANI ROBERTS HELIARC WELDER 12/14/16 1645: Consultation Info Date DATE: 12/14/16 TIME: 16:42 Date of Consultation: December 14, 2016 Attending Physician: Christos Burt MD HPI - Adult Date DATE: 12/14/16 TIME: 16:42 General Date of Admission Date of Admission: December 14, 2016 at 13:27 Chief Complaint: SHORTNESS OF BREATH History of Present Illness Ruth is a 81 yr old female who presented to PCP Dr Miller office today for evaluation. She was found to be hypoxia in the 60's. She was then sent to [facility] emergency room for further medical evaluation. On arrival to the emergency room. She was found to be hypoxic with room air saturations of 78%. Her temperature is 99.8, pulse rate in the 60s, respiration rate 24, blood pressure was elevated at 196/88. Further medical evaluation was obtained , including laboratory studies, chest x-ray and CT scan. Patient was found have an elevated white count at 15.4, hemoglobin 11.9, hematocrit 36.7, platelet count 309, neutrophils 86%. Sodium is 144, potassium 3.3, BUN 11, creatinine 0.5, glucose 152. LFTs were found to be elevated with AST of 70 and ALT of 102. ProBNP 4820, troponin 0.019. INR 1.16, d-dimer 414. Chest x-ray did reveal bilateral patchy airspace opacities representing edema or pneumonia. Given her significant hypoxia and elevated d-dimer. ABG revealed pH 7.52, pCO2 36, pO2 65, bicarbonate 29. A CT scan of the chest was performed. No evidence of pulmonary emboli. However, again, diffuse groundglass opacities bilaterally. Continue to require oxygen by nasal cannula to maintain adequate saturations. She did get up and ambulate to the bathroom with staff. However, upon returning sats did decrease to 70%. Patient approximately 15 minutes on oxygen to recover to normal saturations. Given these findings, Hospital services were contacted and accepted patient for inpatient mission for further eval patient and treatment. Seen on initial examination. She is alert, oriented and pleasant. She reports that she has felt more short of breath for the last 2-3 days. She denies having any fevers or chills, no chest pain, or GI complaints. She states that she sees Dr. Octavio Oconnell patient relations representative in [place]. She reports that she had an echocardiogram in the beginning of 2016. She states that overall she has been doing well since her bypass in June 2016. Her Lasix has been discontinued by the patient relations representative as she was instructed that she did not need it any longer. Past Medical History Past Medical History Metabolic: hypertension Surgical History General: tonsils Cardiac: cardiac bypass (2015) Current Medications Home Meds Active Scripts Meropenem-0.9% Sodium Chloride (Meropenem-0.9% NaCl 1 Gram/50) 1 Gm/50 Ml Piggyback, 1 G IV Q8H for 7 Days Prov:RHODA HERNÁNDEZ APRN 12/17/16 Methylprednisolone Sod Succ/Pf (Solu-Medrol 125 mg Vial) 125 Mg/2 Ml Vial, 125 MG IV Q6HR for 7 Days, VIAL Prov:RHODA HERNÁNDEZ APRN 12/17/16 Guaifenesin (Mucus Relief) 400 Mg Tablet, 400 MG PO BID for 10 Days, #20 TAB Prov:RHODA HERNÁNDEZ APRN 12/17/16 Potassium Chloride (Klor-Con M20) 20 Meq Tablet, 20 MEQ PO WB for 10 Days, #10 TAB Prov:RHODA HERNÁNDEZ APRN 12/17/16 Bumetanide (Bumetanide) 1 Mg Tablet, 1 MG PO TID for 10 Days, #30 TAB Prov:RHODA HERNÁNDEZ APRN 12/17/16 Aspirin *EC* (Aspirin EC) 81 Mg Tablet.dr, 81 MG PO DAILY for 10 Days, #10 TAB Prov:RHODA HERNÁNDEZ APRN 12/17/16 Enoxaparin Sodium (Lovenox) 40 Mg/0.4 Ml Inj, 40 MG SQ DAILY for 10 Days Prov:RHODA HERNÁNDEZ APRN 12/17/16 Ipratropium/Albuterol Sulfate (Iprat-Albut 0.5-3(2.5) mg/3 ml) 3 Ml Ampul.neb, 3 ML AEROSOL RTQID for 30 Days Prov:RHODA HERNÁNDEZ APRN 12/17/16 Reported Medications Acetaminophen (Acetaminophen) 500 Mg Tablet, 1000 MG PO Q8H Y for PAIN 12/14/16 Venlafaxine HCl (Venlafaxine HCl ER) 37.5 Mg Cap.er.24h, 37.5 MG PO HS 5/18/17 Losartan Potassium (Losartan Potassium) 100 Mg Tablet, 50 MG PO BID 12/14/16 Metoprolol Tartrate (Metoprolol Tartrate) 50 Mg Tablet, 50 MG PO BID 12/14/16 Lorazepam (Lorazepam) 0.5 Mg Tablet, 0.5 MG PO TID Y for ANXIETY 12/14/16 Nitroglycerin (Nitroglycerin) 0.4 Mg Tab.subl, 0.4 MG PO Q5MIN Y for CHEST PAIN 12/14/16 Discontinued Reported Medications Atorvastatin Calcium (Atorvastatin Calcium) 80 Mg Tablet, 80 MG PO HS 12/14/16 Amiodarone HCl (Amiodarone HCl) 200 Mg Tablet, 200 MG PO BID 12/14/16 Allergies: Coded Allergies: erythromycin base (Verified Allergy, Unknown, 07/01/16) Family History FOUND: CAD (reported COD father), hypertension (mother) Vaccines June Social History Smoking Status: Never smoker Substance Use Type: does not use Alcohol Intake: none Marital Status: Single Housing: house Current Occupational Status: retired Advance Directives: Yes DNR, Yes DPOA for Healthcare Only (Gatito Bhakta, son) Review of Systems Constitutional: DENIES: chills, dizziness, fever, weakness Eyes Vision: DENIES: vision changes ENMT Hearing: DENIES: tinnitus Balance: DENIES: vertigo Sinuses: NOT FOUND: rhinorrhea Mouth/Throat: DENIES: sore throat Cardiovascular dyspnea on exertion, DENIES: chest pain, murmur Rhythm/Rate: DENIES: irregular beat, palpitations Pulmonary Respiratory: DENIES: cough, sputum GI Upper Abdomen: DENIES: nausea, vomiting Lower Abdomen: DENIES: diarrhea General: DENIES: dysuria Neurological General: DENIES: headache, numbness, syncope, weakness All Other Systems All Other Systems: Reviewed (remainder of 10-point ROS Neg.) Physical Exam General General Nourishment: well nourished, well developed, apparent age Vital Signs Vital Signs Date Time Temp Pulse Resp B/P Pulse Ox O2 Delivery O2 Flow Rate FiO2 12/14/16 14:47 92 Nasal Cannula 3.00 12/14/16 14:40 98.0 78 18 154/72 Height (Feet): 5 Height (Inches): 4.00 Telemetry Rhythm: Sinus Rhythm ENMT Brief: FOUND: mucosa moist Neck Brief: NOT FOUND: JVD, carotid bruits Respiratory Brief: FOUND: equal bilaterally, rales, NOT FOUND: clear all carrillo , wheezes Cardiovascular (brief) Cardiac Brief: FOUND: regular rate, regular rhythm, NOT FOUND: pedal edema Abdomen (brief) Abdominal Brief: FOUND: BS normo active x4, soft, NOT FOUND: tender Integumentary (brief) Integumentary Brief: FOUND: dry, pink, warm Neurologic RN Documented GCS Eye Opening: Verbal: Motor: Total: Psychiatric (brief) FOUND: alert, attentive, oriented Laboratory Laboratory Tests Test 12/14/16 11:04 12/14/16 12:52 12/14/16 14:16 White Blood Count 15.4T/MM3 Red Blood Count 4.21M/MM3 Hemoglobin 11.9GM/DL Hematocrit 36.7% Mean Corpuscular Volume 87.2UM3 Mean Corpuscular Hemoglobin 28.3UUG Mean Corpuscular Hemoglobin Concent 32.4GM/DL RDW Standard Deviation 50.3FL Platelet Count 309T/MM3 Mean Platelet Volume 10.2UM3 Immature Granulocyte % (Auto) % Neutrophils (%) (Auto) % Lymphocytes (%) (Auto) % Monocytes (%) (Auto) % Eosinophils (%) (Auto) % Basophils (%) (Auto) % Absolute Immature Granulocyte (auto T/MM3 Absolute Neutrophils (auto) T/MM3 Absolute Lymphocytes (auto) T/MM3 Absolute Monocytes (auto) T/MM3 Absolute Eosinophils (auto) T/MM3 Absolute Basophils (auto) T/MM3 Neutrophils % (Manual) 86.0% Band Neutrophils % 1.0% Lymphocytes % (Manual) 5.0% Monocytes % (Manual) 7.0% Basophils % (Manual) 1.0% Absolute Neutrophils (Manual) 13.2T/MM3 Band Neutrophils # 0.2T/MM3 Lymphocytes # (Manual) 0.8T/MM3 Monocytes # (Manual) 1.1T/MM3 Basophils # (Manual) 0.2T/MM3 Poikilocytosis 1+ Red Cell Morphology Comment Abnormal Prothromb Time International Ratio 1.16 D-Dimer 414NG/ML Turbidity < 20 Sodium Level 144MEQ/L Potassium Level 3.3MEQ/L Chloride Level 101MEQ/L Carbon Dioxide Level 29MEQ/L Anion Gap 14MEQ/L Blood Urea Nitrogen 11.0MG/DL Creatinine 0.5MG/DL Glomerular Filtration Rate Calc 118 BUN/Creatinine Ratio 22RATIO Glucose Level 152MG/DL Calculated Osmolality 279MOSM/KG Calcium Level 9.1MG/DL Total Bilirubin 1.00MG/DL Icterus Index < 2 Aspartate Amino Transf (AST/SGOT) 70U/L Alanine Aminotransferase (ALT/SGPT) 102U/L Alkaline Phosphatase 137U/L Troponin I 0.019ng/ml WV-Owg-H-Type Natriuretic Peptide 4820PG/ML Total Protein 7.0G/DL Albumin 3.7G/DL Globulin 3.3G/DL Albumin/Globulin Ratio 1.1RATIO Chemistry Specimen Hemolysis < 15 Arterial Blood pH 7.520 Arterial Blood Partial Pressure CO2 36MMHG Arterial Blood pO2 at Patient Temp 65MMHG Arterial Blood HCO3 29MEQ/L Arterial Blood Total CO2 30.5MEQ/L Arterial Blood Oxygen Saturation 95.0% Arterial Blood Base Excess 6.3MMOL/L Oxygen Delivery Method (LAB) Nasal cannula,liters Blood Gas Oxygen Liter Flow 2 Blood Gas Oxygen Percent Given Blood Gas Vent Rate Blood Gas Tidal Volume ML Plasma Lactate 1.7MMOL/L Procalcitonin < 0.05NG/ML Laboratory Tests Test 12/14/16 11:04 12/14/16 12:52 12/14/16 14:16 White Blood Count 15.4T/MM3 Red Blood Count 4.21M/MM3 Hemoglobin 11.9GM/DL Hematocrit 36.7% Mean Corpuscular Volume 87.2UM3 Mean Corpuscular Hemoglobin 28.3UUG Mean Corpuscular Hemoglobin Concent 32.4GM/DL RDW Standard Deviation 50.3FL Platelet Count 309T/MM3 Mean Platelet Volume 10.2UM3 Immature Granulocyte % (Auto) % Neutrophils (%) (Auto) % Lymphocytes (%) (Auto) % Monocytes (%) (Auto) % Eosinophils (%) (Auto) % Basophils (%) (Auto) % Absolute Immature Granulocyte (auto T/MM3 Absolute Neutrophils (auto) T/MM3 Absolute Lymphocytes (auto) T/MM3 Absolute Monocytes (auto) T/MM3 Absolute Eosinophils (auto) T/MM3 Absolute Basophils (auto) T/MM3 Neutrophils % (Manual) 86.0% Band Neutrophils % 1.0% Lymphocytes % (Manual) 5.0% Monocytes % (Manual) 7.0% Basophils % (Manual) 1.0% Absolute Neutrophils (Manual) 13.2T/MM3 Band Neutrophils # 0.2T/MM3 Lymphocytes # (Manual) 0.8T/MM3 Monocytes # (Manual) 1.1T/MM3 Basophils # (Manual) 0.2T/MM3 Poikilocytosis 1+ Red Cell Morphology Comment Abnormal Prothromb Time International Ratio 1.16 D-Dimer 414NG/ML Turbidity < 20 Sodium Level 144MEQ/L Potassium Level 3.3MEQ/L Chloride Level 101MEQ/L Carbon Dioxide Level 29MEQ/L Anion Gap 14MEQ/L Blood Urea Nitrogen 11.0MG/DL Creatinine 0.5MG/DL Glomerular Filtration Rate Calc 118 BUN/Creatinine Ratio 22RATIO Glucose Level 152MG/DL Calculated Osmolality 279MOSM/KG Calcium Level 9.1MG/DL Total Bilirubin 1.00MG/DL Icterus Index < 2 Aspartate Amino Transf (AST/SGOT) 70U/L Alanine Aminotransferase (ALT/SGPT) 102U/L Alkaline Phosphatase 137U/L Troponin I 0.019ng/ml II-Fyw-U-Type Natriuretic Peptide 4820PG/ML Total Protein 7.0G/DL Albumin 3.7G/DL Globulin 3.3G/DL Albumin/Globulin Ratio 1.1RATIO Chemistry Specimen Hemolysis < 15 Arterial Blood pH 7.520 Arterial Blood Partial Pressure CO2 36MMHG Arterial Blood pO2 at Patient Temp 65MMHG Arterial Blood HCO3 29MEQ/L Arterial Blood Total CO2 30.5MEQ/L Arterial Blood Oxygen Saturation 95.0% Arterial Blood Base Excess 6.3MMOL/L Oxygen Delivery Method (LAB) Nasal cannula,liters Blood Gas Oxygen Liter Flow 2 Blood Gas Oxygen Percent Given Blood Gas Vent Rate Blood Gas Tidal Volume ML Plasma Lactate 1.7MMOL/L Procalcitonin < 0.05NG/ML EKG SR Radiology DATE OF EXAM: 12/14/16 ORDERING DOCTOR: EV HAYS MD TYPE OF EXAM: CHEST, PA & LATERAL REASON FOR EXAM: dyspnea INDICATION: ITS.REASON: dyspnea PROCEDURE: CHEST 2-VIEWS UPRIGHT (PA \T\ LAT) Encounter: Initial COMPARISON: July 01, 2016 FINDINGS: Patchy airspace and interstitial opacities throughout both lungs with a perihilar predominance. No pneumothorax or pleural effusion. Postoperative changes of prior CABG, new from the prior. Cardiac silhouette is mildly enlarged. Mediastinal contours and pulmonary vascularity are indistinct. Impression: Bilateral patchy airspace and interstitial opacities could be due to pulmonary edema and/or severe pneumonia. Recommend clinical and laboratory correlation. DATE OF EXAM: 12/14/16 ORDERING DOCTOR: EV HAYS MD TYPE OF EXAM: CTA PULMONARY EMBOLI REASON FOR EXAM: acute dyspnea, elevated d-dimer Indication: ITS.REASON: acute dyspnea, elevated d-dimer PROCEDURE: CTA PULMONARY EMBOLI: Encounter: Initial Comparison: Chest x-ray from today Technique: Axial CT pulmonary angiographic phase images were performed through the chest after the administration of intravenous contrast. Coronal and Sagittal MIP reconstructed images were created and reviewed. Automated Exposure Control and Iterative Reconstruction dose reducing techniques were utilized. Contrast: Omnipaque 350 70 mL Findings: Pulmonary arteries: Exam is diagnostic to the subsegmental pulmonary arterial level. No filling defects identified to suggest a pulmonary embolus. Other findings: Diffuse groundglass type opacities with evidence of interlobular septal thickening seen with a basilar and perihilar predominance. There is some mild bronchiectasis noted in both lower lobes, likely chronic. No pleural effusion or pneumothorax. The central airways are patent. No axillary or mediastinal adenopathy. Heart is moderately enlarged. No pericardial effusion. Prior CABG. The upper abdomen shows no acute findings. Impression: 1. No pulmonary embolus. 2. Diffuse groundglass opacities and areas of septal thickening with a pattern most suggestive of moderate pulmonary edema, probably due to congestive failure. Impression/Recommendation Problems: (1) Diastolic CHF Status: Acute Assessment & Plan: EF 55% on echo. Diuresis with Bumex 1mg Q8H (2) Sepsis Status: Acute Assessment & Plan: per attending (3) CAP (community acquired pneumonia) Status: Acute Assessment & Plan: per attending (4) Elevated LFTs Status: Acute Assessment & Plan: Stop Amiodarone and Atorvastatin (5) CAD (coronary artery disease) of bypass graft Onset Date: ~ 06/2016 Status: Chronic (6) HTN (hypertension) Status: Chronic Assessment & Plan: Continue Losartan and Metoprolol Recommendation Diastolic HF: EF 55% on echo. Diuresis with Bumex 1mg Q8H. Elevated LFTs: Stop Amiodarone and Atorvastatin HTN: Continue Losartan and Metoprolol. Thank you for allowing us to participate in the care of this patient. AMIRANI,THEO MD 12/19/16 1014: Past Medical History Current Medications Home Meds Active Scripts Meropenem-0.9% Sodium Chloride (Meropenem-0.9% NaCl 1 Gram/50) 1 Gm/50 Ml Piggyback, 1 G IV Q8H for 7 Days Prov:RHODA HERNÁNDEZ APRN 12/17/16 Methylprednisolone Sod Succ/Pf (Solu-Medrol 125 mg Vial) 125 Mg/2 Ml Vial, 125 MG IV Q6HR for 7 Days, VIAL Prov:RHODA HERNÁNDEZ APRN 12/17/16 Guaifenesin (Mucus Relief) 400 Mg Tablet, 400 MG PO BID for 10 Days, #20 TAB Prov:RHODA HERNÁNDEZ APRN 12/17/16 Potassium Chloride (Klor-Con M20) 20 Meq Tablet, 20 MEQ PO WB for 10 Days, #10 TAB Prov:RHODA HERNÁNDEZ APRN 12/17/16 Bumetanide (Bumetanide) 1 Mg Tablet, 1 MG PO TID for 10 Days, #30 TAB Prov:HRODA HERNÁNDEZ APRN 12/17/16 Aspirin *EC* (Aspirin EC) 81 Mg Tablet.dr, 81 MG PO DAILY for 10 Days, #10 TAB Prov:RHODA HERNÁNDEZ APRN 12/17/16 Enoxaparin Sodium (Lovenox) 40 Mg/0.4 Ml Inj, 40 MG SQ DAILY for 10 Days Prov:RHODA HERNÁNDEZ APRN 12/17/16 Ipratropium/Albuterol Sulfate (Iprat-Albut 0.5-3(2.5) mg/3 ml) 3 Ml Ampul.neb, 3 ML AEROSOL RTQID for 30 Days Prov:RHODA HERNÁNDEZ APRN 12/17/16 Reported Medications Acetaminophen (Acetaminophen) 500 Mg Tablet, 1000 MG PO Q8H Y for PAIN 12/14/16 Venlafaxine HCl (Venlafaxine HCl ER) 37.5 Mg Cap.er.24h, 37.5 MG PO HS 12/14/16 Losartan Potassium (Losartan Potassium) 100 Mg Tablet, 50 MG PO BID 12/14/16 Metoprolol Tartrate (Metoprolol Tartrate) 50 Mg Tablet, 50 MG PO BID 12/14/16 Lorazepam (Lorazepam) 0.5 Mg Tablet, 0.5 MG PO TID Y for ANXIETY 12/14/16 Nitroglycerin (Nitroglycerin) 0.4 Mg Tab.subl, 0.4 MG PO Q5MIN Y for CHEST PAIN 12/14/16 Discontinued Reported Medications Atorvastatin Calcium (Atorvastatin Calcium) 80 Mg Tablet, 80 MG PO HS 12/14/16 Amiodarone HCl (Amiodarone HCl) 200 Mg Tablet, 200 MG PO BID 12/14/16 Allergies: Coded Allergies: erythromycin base (Verified Allergy, Unknown, 07/01/16) Impression/Recommendation Recommendation After examining the patient I agree with the above assessment. I am involved in the formulation of the patient's plan of care. KALANI ROBERTS APRN December 14, 2016 16:45 THEO CRUZ MD December 19, 2016 10:14
[2016-12-14] MEDS ORDERED: ONDANSETRON 4 MG TABLET PO PRN (17:45)
[2016-12-14] MEDS: ONDANSETRON 4mg/2ml INJECTION IV PRN (18:02)
--- NOTE | 2016-12-14 18:45 | NUR ---
STATUS PATIENT HAS STAYS ON 3 NC ALL EVENING. SATS HAVE STAYED ON LOW 90S. PATIENT HAS OCCASIONAL DRY COUGHS. RECEIVED LASIX AND BUMEX TODAY ORDERED BY ATTENDING AND UNIVERSITY ADMINISTRATOR. DENIES PAIN ALL SHIFT. PATIENT RUNS HIGH BP. METOPROLOL IS ADMINISTERED. PATIENT GOES TO BATHROOM SEVERAL TIMES TO VOID POST DIURETICS ADMINISTRATION. PATIENT IS NOW RESTING QUIETLY IN BED.
[2016-12-14] MEDS: LOSARTAN 50 MG TABLET PO SCH (20:41)
[2016-12-15] VITALS (18 sets, daily range): BP systolic 115–130; BP diastolic 59–66; PULSE 72–85; RESP 16–20; TEMP 98.5–100.4; O2SAT 84–100
[2016-12-15] MEDS: BUMETANIDE 2.5mg INJECTION IV SCH ×2 (00:05→09:13)
--- NOTE | 2016-12-15 01:13 | NUR ---
DIFFICULTY SLEEPING: PT REQUESTED SOMETHING TO HELP HER SLEEP. SENT TIGER TEXT, REC'D CALL BACK FROM [facility]. DOCTOR ASKED ME TO PLACE ORDER FOR A ONE TIME DOSE OF ATIVAN (O.5 MG). WILL ADMINISTER AFTER PLACING.
[2016-12-15] MEDS ORDERED: LORAZEPAM 2 MG/ML INJECTION IV ONE ×2 (01:15→22:45)
--- NOTE | 2016-12-15 04:31 | NUR ---
SHIFT SUMMARY: PT IS A&OX3, FRIENDLY AND COOPERATIVE, HAS A DRY COUGH, ON TELEMETRY, IV LOCKED, HAS TAWANDA. HEARING AIDES, UP WITH WALKER AND GATE BELT - USED BEDSIDE COMMODE TO RELIEVE HERSELF DURING THE NIGHT DUE TO FREQUENT TOILETING NEEDS DUE TO BUMEX. PT ON 4L OXYGEN NC (INCREASED FROM 3L AT BEGINNING OF MY SHIFT). CALL LIGHT WITHIN REACH, BED ALARM ON.
[2016-12-15 05:30] LABS: BASOPHILS % (AUTO) 0.1 % (0-2); EOSINOPHILS # (AUTO) 0.1 T/MM3 (0-0.5); EOSINOPHILS % (AUTO) 0.9 % (0-4); IMMATURE GRANULOCYTE # (AUTO) 0.01 T/MM3 (0.00-0.03); IMMATURE GRANULOCYTE % (AUTO) 0.1 % (0.0-0.5); LYMPHOCYTES # (AUTO) 1.3 T/MM3 (1-4.8); LYMPHOCYTES % (AUTO) 9.9 % (23-45); MEAN CORPUSCULAR HGB 27.9 UUG (26-34); MEAN CORPUSCULAR HGB CONC(MCHC 32.3 GM/DL (31-37); MEAN CORPUSCULAR VOLUME 86.4 UM3 (80-100); MONOCYTES # (AUTO) 1.5 T/MM3 (0-0.8); MONOCYTES % (AUTO) 11.1 % (0-9.0); NEUTROPHILS #(AUTO)-ABSOLUTE 10.5 T/MM3 (1.8-7.7); NEUTROPHILS % (AUTO) 77.9 % (33-66); RED BLOOD COUNT 3.59 M/MM3 (4.00-5.20); WBC - WHITE BLOOD COUNT 13.5 T/MM3 (4.5-11.0)
[2016-12-15 06:07] LABS: ALBUMIN/GLOBULIN RATIO 1.1 RATIO (1.1-2.2); ALKALINE PHOSPHATASE 105 U/L (38-126); ALT (SGPT) 85 U/L (9-52); ANION GAP 16 MEQ/L (5-15); AST (SGOT) 50 U/L (14-36); BUN/CREATININE RATIO 19 RATIO (6-26); CALCIUM 8.5 MG/DL (8.4-10.2); CHLORIDE 98 MEQ/L (98-107); CO2 - CARBON DIOXIDE 32 MEQ/L (22-30); CREATININE 0.9 MG/DL (0.7-1.2); GLOMERULAR FILTRATION RATE 60; GLUCOSE 125 MG/DL (65-110); POTASSIUM 3.6 MEQ/L (3.6-5); SODIUM 146 MEQ/L (134-144); TOTAL PROTEIN 5.8 G/DL (6.3-8.2)
[2016-12-15] MEDS: ALBUTEROL/IPRATROPIUM INHAL. 2.5mg-0.5mg/3ml Neb. AEROSOL SCH ×4 (07:54→19:56)
[2016-12-15] MEDS ORDERED: CEFTRIAXONE 1 G in NORMAL SALINE 100 ML IV SCH (09:00)
--- NOTE | 2016-12-15 09:08 | ECHOF ---
DATE OF PROCEDURE December 14, [address] Christos Hough This is a two-dimensional echo with spectral Doppler, color-flow and M-mode. It was obtained in a patient with shortness of breath. Left atrium is dilated. Left ventricle end-diastolic dimension is at the upper limits of normal. Left ventricle wall thickness at the upper limits of normal. LV systolic function is normal with ejection fraction of 55%. Right atrium is normal. Right ventricle is normal. Aortic root dimension is normal. Mitral valve annulus is calcified. Mitral valve leaflets are sclerotic with no stenosis. Mild mitral regurgitation is present. Aortic valve shows fibrocalcific changes with no stenosis or insufficiency. Tricuspid valve shows mild tricuspid regurgitation with [id number] pulmonary hypertension with estimated pulmonary artery systolic pressure of 69. Pulmonary valve shows mild pulmonary insufficiency. There is no pericardial effusion. IMPRESSION 1. Normal LV systolic function with ejection fraction of 55%. 2. Left atrial dilation. 3. Mitral annulus calcification with mitral sclerosis and mild mitral regurgitation. 4. Aortic sclerosis. 5. Mild pulmonary insufficiency. 6. Mild tricuspid regurgitation with [id number] pulmonary hypertension with estimated pulmonary artery systolic pressure of 69. MTDD
[2016-12-15] MEDS: LOSARTAN 50 MG TABLET PO SCH ×2 (09:13→20:20)
[2016-12-15] MEDS: LEVOFLOXACIN 500 mg IVPB 500 MG in D5W 100 ML IV SCH (09:13)
--- NOTE | 2016-12-15 10:41 | NUR ---
[facility] CM VISITED PT AND EXPLAINED ROLE AND PROVIDED CONTACT INFORMATION. PT PLANS TO RETURN HOME POST HOSPITAL STAY. PT DENIES NEEDS-HOME HEALTH. PT [place] [facility] AND HAS ACCESS TO ASSISTANCE IF NEEDED. PT IS HOPING NOT TO NEED OXYGEN AT TIE OF D/C. PT WILL USE [facility] FOR HOME OXYGEN IF NEEDED. PT IS AWARE THAT CM WILL SET IT UP WELL. PT IS AWARE TO CONTACT CM IF NEED ARISE.
--- NOTE | 2016-12-15 12:13 | PNPDOC ---
RHODA HERNÁNDEZ V WINDOW MACHINE OPERATOR 12/15/16 1206: Subjective Date DATE: 12/15/16 TIME: 11:56 Subjective Ruth is seen today in follow up. She is currently on 4 liters of oxygen to maintain saturations. She is alert and orientated and reports she has a difficulty sleeping overnight until she received Ativan in which she was "whipped out". She reports her breathing is about the same and she continues to have active coughing. Denies chest pain or GI complaints. Objective Vital Signs Vital signs Vital Signs Date Time Temp Pulse Resp B/P Pulse Ox O2 Delivery O2 Flow Rate FiO2 12/15/16 11:26 18 92 12/15/16 11:26 84 12/15/16 09:32 Nasal Cannula 4.00 12/15/16 07:44 99.0 115/61 Telemetry Rhythm: Sinus Rhythm Height (Feet): 5 Height (Inches): 4.00 Weight (Kilograms): 78.500 General General Appearance: Alert, Orientated x 3, Cooperative, No Acute Distress Eyes (Brief) Eyes: FOUND: EOMI ENMT (Brief) ENMT: FOUND: mucosa moist, normal dentition, NOT FOUND: pharnyx erythema Neck (Brief) Neck: FOUND: midline, NOT FOUND: adenopathy, carotid bruits, tracheal deviation Respiratory (Brief) Respiratory: NOT FOUND: wheezes Comments Course breath sounds Cardiovascular (Brief) Cardiac: FOUND: regular rate, regular rhythm, NOT FOUND: murmur, pedal edema Capillary Refill: <2 sec Abdomen (Brief) Abdominal: FOUND: BS normo active x4, soft, NOT FOUND: distended, tender Lymphatic (Brief) Lymphatic: NOT FOUND: adenopathy Musculoskeletal (Brief) Musculoskeletal: NOT FOUND: tenderness Integumentary (Brief) Integumentary: FOUND: dry, pink, warm Neurologic (Brief) Neurological: FOUND: cranial 2-12 intact Psychiatric (Brief) Psychiatric: FOUND: alert, attentive, normal affect, oriented Laboratory Laboratory Laboratory Tests 12/14/16 11:04 12/15/16 04:50 Laboratory Tests 12/14/16 11:04 12/15/16 04:50 Microbiology Microbiology Microbiology Date/Time Source Procedure Growth Status 12/14/16 11:20 Peripheral/Iv Start Blood Culture - Preliminary NO GROWTH AFTER 24 HOURS Resulted 12/14/16 11:19 Peripheral/Iv Start Blood Culture - Preliminary NO GROWTH AFTER 24 HOURS Resulted Assessment & Plan Problems: (1) Sepsis Status: Acute Assessment & Plan: Manifestations of sepsis include the following 1. Pneumonia 2. Respiratory failure with hypoxia requiring oxygen to maintain saturations 3. Leukocytosis, WBC count 15 (2) CAP (community acquired pneumonia) Status: Acute (3) Respiratory failure with hypoxia Status: Acute Qualifiers: Chronicity: acute Qualified Codes: J96.01 - Acute respiratory failure with hypoxia (4) Leukocytosis Status: Acute Assessment & Plan: Present on admission (5) Elevated LFTs Status: Acute (6) Hypokalemia Status: Acute Assessment & Plan: Present on admission (7) CAD (coronary artery disease) of bypass graft Onset Date: ~ 06/2016 Status: Chronic Qualifiers: [place] vs. transplanted heart: [place] heart Associated angina: angina presence unspecified Qualified Codes: I25.810 - Atherosclerosis of coronary artery bypass graft(s) without angina pectoris (8) HTN (hypertension) Status: Chronic Qualifiers: Hypertension type: essential hypertension Qualified Codes: I10 - Essential (primary) hypertension Assessment Plan/Intensity of Service 12/15 Overall breathing feels about the same to Ruth Currently on 4 liters of oxygen. Will work on weaning down as able. Schedule Duoneb breathing treatments QID Continue with Bumex 1 mg IV every 8 hours for aggressive diuresing. Appreciate cardiology consultation by Dr Garland. Will recheck Chest X-ray tomorrow to follow failure verses pneumonia Leukocytosis slightly improved to 13.5. LFTs are trending down. Continue to follow. Continue Levaquin for pulmonary antimicrobial coverage. Preliminary blood cultures negative. Code Status Do Not Resuscitate Hospital Course Summary Disclaimer The hospital course summary below is not to be considered part of the above Progress Note. Hospital Course Summary Admit patient to inpatient status under the care of Dr. Hough for sepsis, community-acquired pneumonia with hypoxia Patient does meet sepsis criteria, given findings of pneumonia, hypoxia and leukocytosis. Will obtain venous lactate and pro-calcitonin on admission. Blood cultures were obtained in the emergency room. Patient started on Rocephin 1 gram IV daily as well as a azithromycin 500 milligrams IV daily for antimicrobial coverage. Will monitor elevated LFTs. It may be elevated from systemic response to sepsis process Continue with oxygen therapy to maintain adequate saturations. Will also scheduled DuoNeb breathing treatments 4 times a day Will obtain an Echocardiogram for further cardiac evaluation Give a one time dose of Lasix 20 mg IV for fluid motivation. May need scheduled diuresis seen. Monitor patient on cardiac telemetry SCDs to bilateral lower ext for DVT prophylaxis Have asked nursing staff to old records from Anish's office. Patient states that she did have a ECHO in the beginning of 2016. Recehck CBC and CMP tomorrow to follow blood counts, renal function, electrolytes and LFT. PORT score mortality risk indicator showing 9.3% of mortality related to infection Again patient requests DNR and this order is written. Will discuss further plan of care with attending, Dr. Hough. At time of discharge medical care will return to primary care provider, Dr. Miller 12/15 Overall breathing feels about the same to Ruth Currently on 4 liters of oxygen. Will work on weaning down as able. Schedule Duoneb breathing treatments QID Continue with Bumex 1 mg IV every 8 hours for aggressive diuresing. Appreciate cardiology consultation by Dr Garland. Will recheck Chest X-ray tomorrow to follow failure verses pneumonia Leukocytosis slightly improved to 13.5. LFTs are trending down. Continue to follow. Continue Levaquin for pulmonary antimicrobial coverage. Preliminary blood cultures negative. ALLYSON HOUGH MD 12/18/16 0851: Assessment & Plan Assessment Patient seen and examined same day as practitioner Rhoda Hernández. Agree with subjective objective physical exam assessment and plan. RHODA HERNÁNDEZ APRN December 15, 2016 12:06 ALLYSON HOUGH MD December 18, 2016 08:51
--- NOTE | 2016-12-15 13:08 | DI ---
INDICATION: ITS.REASON: CHF -vs- Pneumonia PROCEDURE: CHEST 2-VIEWS UPRIGHT (PA \T\ LAT) Encounter: Initial COMPARISON: December 14, 2016 FINDINGS: Slightly improved aeration of the lower lung [place] with significant airspace disease remaining. No pneumothorax. Small pleural effusions. Heart size and mediastinal contours are stable. Pulmonary vascularity is indistinct. Prior CABG. Impression: Slight improvement in aeration of the lung bases with significant residual airspace disease which is probably mostly due to pneumonia. There is probably some superimposed mild edema. .
--- NOTE | 2016-12-15 14:59 | PNPDOC ---
KALANI ROBERTS TUBE BALANCER 12/15/16 1450: Subjective Date DATE: 12/15/16 TIME: 13:45 Subjective Chago is sitting up in her recliner in her room. She states she feels she is breathing much better as compared to yesterday, She denies chest pain or pressure. Objective Vital Signs Vital signs Vital Signs 12/15/16 12/15/16 12/15/16 12/15/16 07:44 07:47 07:48 07:50 Temp 99.0 Pulse 72 69 Resp 16 B/P 115/61 Pulse Ox 92 84 90 O2 Delivery Nasal Cannula Nasal Cannula Nasal Cannula O2 Flow Rate 2.50 3.00 4.00 12/15/16 12/15/16 12/15/16 12/15/16 07:52 07:54 07:56 09:32 Pulse 72 68 Resp 16 18 Pulse Ox 92 96 O2 Delivery Nasal Cannula O2 Flow Rate 4.00 12/15/16 12/15/16 11:26 11:26 Pulse 84 Resp 18 Pulse Ox 92 Telemetry Rhythm: Sinus Rhythm Height (Feet): 5 Height (Inches): 4.00 Weight (Kilograms): 78.500 General Alert, Orientated x 3, Cooperative ENMT (Brief) mucosa moist Neck (Brief) NOT FOUND: JVD, carotid bruits Respiratory (Brief) equal bilaterally, wheezes, NOT FOUND: clear all car[place], rales (bibasilar) Cardiovascular (Brief) regular rate, regular rhythm, NOT FOUND: click, gallop, murmur, pedal edema, rub Abdomen (Brief) BS normo active x4, soft, NOT FOUND: tender Integumentary (Brief) dry, pink, warm Psychiatric (Brief) alert, attentive, normal affect, oriented Laboratory Laboratory Laboratory Tests Test 12/14/16 11:04 12/14/16 12:52 12/14/16 14:16 12/14/16 17:24 White Blood Count 15.4T/MM3 Red Blood Count 4.21M/MM3 Hemoglobin 11.9GM/DL Hematocrit 36.7% Mean Corpuscular Volume 87.2UM3 Mean Corpuscular Hemoglobin 28.3UUG Mean Corpuscular Hemoglobin Concent 32.4GM/DL RDW Standard Deviation 50.3FL Platelet Count 309T/MM3 Mean Platelet Volume 10.2UM3 Immature Granulocyte % (Auto) % Neutrophils (%) (Auto) % Lymphocytes (%) (Auto) % Monocytes (%) (Auto) % Eosinophils (%) (Auto) % Basophils (%) (Auto) % Absolute Immature Granulocyte (auto T/MM3 Absolute Neutrophils (auto) T/MM3 Absolute Lymphocytes (auto) T/MM3 Absolute Monocytes (auto) T/MM3 Absolute Eosinophils (auto) T/MM3 Absolute Basophils (auto) T/MM3 Neutrophils % (Manual) 86.0% Band Neutrophils % 1.0% Lymphocytes % (Manual) 5.0% Monocytes % (Manual) 7.0% Basophils % (Manual) 1.0% Absolute Neutrophils (Manual) 13.2T/MM3 Band Neutrophils # 0.2T/MM3 Lymphocytes # (Manual) 0.8T/MM3 Monocytes # (Manual) 1.1T/MM3 Basophils # (Manual) 0.2T/MM3 Poikilocytosis 1+ Red Cell Morphology Comment Abnormal Prothromb Time International Ratio 1.16 D-Dimer 414NG/ML Turbidity < 20 Sodium Level 144MEQ/L Potassium Level 3.3MEQ/L Chloride Level 101MEQ/L Carbon Dioxide Level 29MEQ/L Anion Gap 14MEQ/L Blood Urea Nitrogen 11.0MG/DL Creatinine 0.5MG/DL Glomerular Filtration Rate Calc 118 BUN/Creatinine Ratio 22RATIO Glucose Level 152MG/DL Calculated Osmolality 279MOSM/KG Calcium Level 9.1MG/DL Total Bilirubin 1.00MG/DL Icterus Index < 2 Aspartate Amino Transf (AST/SGOT) 70U/L Alanine Aminotransferase (ALT/SGPT) 102U/L Alkaline Phosphatase 137U/L Troponin I 0.019ng/ml 0.023ng/ml BT-Frg-B-Type Natriuretic Peptide 4820PG/ML Total Protein 7.0G/DL Albumin 3.7G/DL Globulin 3.3G/DL Albumin/Globulin Ratio 1.1RATIO Chemistry Specimen Hemolysis < 15 < 15 Arterial Blood pH 7.520 Arterial Blood Partial Pressure CO2 36MMHG Arterial Blood pO2 at Patient Temp 65MMHG Arterial Blood HCO3 29MEQ/L Arterial Blood Total CO2 30.5MEQ/L Arterial Blood Oxygen Saturation 95.0% Arterial Blood Base Excess 6.3MMOL/L Oxygen Delivery Method (LAB) Nasal cannula,liters Blood Gas Oxygen Liter Flow 2 Blood Gas Oxygen Percent Given Blood Gas Vent Rate Blood Gas Tidal Volume ML Plasma Lactate 1.7MMOL/L Procalcitonin < 0.05NG/ML Test 12/14/16 22:42 12/15/16 04:50 Troponin I 0.030ng/ml 0.032ng/ml Chemistry Specimen Hemolysis < 15 < 15 White Blood Count 13.5T/MM3 Red Blood Count 3.59M/MM3 Hemoglobin 10.0GM/DL Hematocrit 31.0% Mean Corpuscular Volume 86.4UM3 Mean Corpuscular Hemoglobin 27.9UUG Mean Corpuscular Hemoglobin Concent 32.3GM/DL RDW Standard Deviation 48.9FL Platelet Count 286T/MM3 Mean Platelet Volume 10.0UM3 Immature Granulocyte % (Auto) 0.1% Neutrophils (%) (Auto) 77.9% Lymphocytes (%) (Auto) 9.9% Monocytes (%) (Auto) 11.1% Eosinophils (%) (Auto) 0.9% Basophils (%) (Auto) 0.1% Absolute Immature Granulocyte (auto 0.01T/MM3 Absolute Neutrophils (auto) 10.5T/MM3 Absolute Lymphocytes (auto) 1.3T/MM3 Absolute Monocytes (auto) 1.5T/MM3 Absolute Eosinophils (auto) 0.1T/MM3 Absolute Basophils (auto) 0.0T/MM3 Turbidity < 20 Sodium Level 146MEQ/L Potassium Level 3.6MEQ/L Chloride Level 98MEQ/L Carbon Dioxide Level 32MEQ/L Anion Gap 16MEQ/L Blood Urea Nitrogen 17.0MG/DL Creatinine 0.9MG/DL Glomerular Filtration Rate Calc 60 BUN/Creatinine Ratio 19RATIO Glucose Level 125MG/DL Calculated Osmolality 284MOSM/KG Calcium Level 8.5MG/DL Total Bilirubin 0.80MG/DL Icterus Index < 2 Aspartate Amino Transf (AST/SGOT) 50U/L Alanine Aminotransferase (ALT/SGPT) 85U/L Alkaline Phosphatase 105U/L Total Protein 5.8G/DL Albumin 3.0G/DL Globulin 2.8G/DL Albumin/Globulin Ratio 1.1RATIO Laboratory Tests 12/15/16 04:50 Laboratory Tests 12/15/16 04:50 Medications Current Medications Sodium Chloride (Normal Saline IV) 1,000 ml @ 1,000 mls/hr Q1H ONCE IV Last administered on 12/14/16t 11:55; Start 12/14/16 at 10:50; Stop 12/14/16 at 11:49 ; Status DC Iohexol 1 bottle 1 bottle STK-MED ONCE .ROUTE ; Start 12/14/16 at 12:07; Stop at 12:08; Status DC Sodium Chloride (NS) 100 ml @ As Directed STK-MED ONCE .ROUTE ; Start 12/14/16 at 12:07; Stop 12/14/16 at 12:08; Status DC Sodium Chloride 10 ml 10 ml STK-MED ONCE .ROUTE ; Start 12/14/16 at 12:07; Stop 12/14/16 at 12:08; Status DC Ceftriaxone Sodium/Sodium Chloride (Rocephin/NS) 100 ml @ 100 mls/hr O ONCE IV Last administered on 12/14/16 14:02; Start 12/14/16 at 14:00; Stop at 14:59; Status DC Albuterol/ Ipratropium (Duoneb) 3 ml QID AEROSOL Last administered on 11:25; Start 12/14/16 at 17:00 Furosemide 20 mg 20 mg O ONCE IV Last administered on 12/14/16 16:05; Start 12/14/16 at 14:15; Stop 12/14/16 at 14:28; Status DC Ceftriaxone Sodium 1 g/Sodium Chloride 100 ml @ 200 mls/hr DAILY IV ; Start at 09:00; Stop 12/15/16 at 09:00; Status DC Azithromycin 500 mg/Sodium Chloride 250 ml @ 250 mls/hr DAILY IV ; Start at 14:15; Stop 12/14/16 at 15:26; Status DC Levofloxacin/ Dextrose/Water (LEVAQUIN 500 mg IVPB/D5W) 100 ml @ 100 mls/hr DAILY IV Last administered on 12/15/16 09:13; Start 12/14/16 at 15:30 Potassium Chloride (Kdur) 40 meq O ONCE PO Last administered on 12/14/16 16: 09; Start 12/14/16 at 15:30; Stop 12/14/16 at 15:50; Status DC Bumetanide (Bumex Inj. 2.5 Mg/10 ml) 1 mg Q8H IV Last administered on 09:13; Start 12/14/16 at 16:00 Losartan Potassium (COZAAR 50 mg) 50 mg BID PO Last administered on 12/15/16 09:13; Start 12/14/16 at 21:00 Metoprolol Tartrate (Lopressor) 50 mg BIDBS PO Last administered on 12/15/16 09:12; Start 12/14/16 at 17:30 Ondansetron HCl (Zofran) 4 mg Q6H PRN PO ; Start 12/14/16 at 17:45 Lorazepam (Ativan) 0.5 mg O ONCE IV Last administered on 12/15/16 01:29; Start 12/15/16 at 01:15; Stop 12/15/16 at 06:20; Status DC Microbiology Microbiology Microbiology Date/Time Source Procedure Growth Status 12/14/16 11:20 Peripheral/Iv Start Blood Culture - Preliminary NO GROWTH AFTER 24 HOURS Resulted 12/14/16 11:19 Peripheral/Iv Start Blood Culture - Preliminary NO GROWTH AFTER 24 HOURS Resulted Assessment & Plan Problems: (1) Diastolic CHF Status: Acute Qualifiers: Congestive heart failure chronicity: unspecified congestive heart failure chronicity Qualified Codes: I50.30 - Unspecified diastolic (congestive) heart failure Assessment & Plan: EF 55% on echo. Diuresis with Bumex 1mg Q8H (2) Sepsis Status: Acute Assessment & Plan: per attending (3) CAP (community acquired pneumonia) Status: Acute Assessment & Plan: per attending (4) Elevated LFTs Status: Acute Assessment & Plan: Stop Amiodarone and Atorvastatin (5) CAD (coronary artery disease) of bypass graft Onset Date: ~ 06/2016 Status: Chronic Qualifiers: [place] vs. transplanted heart: [place] heart Associated angina: angina presence unspecified Qualified Codes: I25.810 - Atherosclerosis of coronary artery bypass graft(s) without angina pectoris (6) HTN (hypertension) Status: Chronic Qualifiers: Hypertension type: essential hypertension Qualified Codes: I10 - Essential (primary) hypertension Assessment & Plan: Continue Losartan and Metoprolol Plan/Intensity of Service 12/14/16 Diastolic HF: EF 55% on echo. Diuresis with Bumex 1mg Q8H. Elevated LFTs: Stop Amiodarone and Atorvastatin HTN: Continue Losartan and Metoprolol. 12/15/16 Change Bumex to PO, Aspirin 81mg daily and Lovenox for DVT prophylaxis Thank you for allowing us to participate in the care of this patient. THEO CRUZ MD 12/19/16 1017: Assessment & Plan Plan/Intensity of Service After examining the patient I agree with the above assessment. I am involved in the formulation of the patient's plan of care. KALANI ROBERTS APRN December 15, 2016 14:50 THEO CRUZ MD December 19, 2016 10:17
[2016-12-15] MEDS: ENOXAPARIN 40 MG/0.4 ML INJECTION SQ SCH (16:09)
[2016-12-15] MEDS: BUMETANIDE 1 MG TABLET PO SCH ×2 (16:09→20:20)
[2016-12-15] MEDS: ASPIRIN *EC* 81mg TABLET PO SCH (16:18)
[2016-12-15] MEDS ORDERED: PRN ORDERS MC (16:30)
[2016-12-15] MEDS ORDERED: ACETAMINOPHEN 325 MG TABLET PO PRN ×2 (16:30)
--- NOTE | 2016-12-15 16:46 | NUR ---
STATUS PT A/O X3. UP WITH ASSIST OF ONE WITH WALKER AND GAIT BELT. PT DENIES PAIN OR NAUSEA. SOA WITH EXERTION. PT ON 3L O2 PER NC. DRY PRODUCTIVE COUGH. PRN TYLENOL GIVEN FOR TEMPERATURE OF 100.4. VERBAL ORDERS FOR PRN ORDER RECEIVED FROM RHODA HERNÁNDEZ EXCAVATING MACHINE OPERATOR [id number]. ADEQUATE OUTPUT, PT MISSED HAT. PT RESTING IN BED WITH ALARM. CALL LIGHT WITHIN REACH. WILL CONTINUE TO MONITOR.
--- NOTE | 2016-12-15 23:32 | NUR ---
DIFFICULTY SLEEPING: PT REQUESTED SOMETHING TO HELP HER SLEEP. SENT TIGER TEXT, REC'D CALL BACK FROM [facility] BRANDT. DOCTOR ASKED ME TO PLACE ORDER FOR A ONE TIME DOSE OF ATIVAN (O.5 MG). MEDICATION ADMINISTERED.
[2016-12-16] VITALS (11 sets, daily range): BP systolic 122–149; BP diastolic 65–88; PULSE 78–97; RESP 19–32; TEMP 97.6–99.3; O2SAT 63–98
--- NOTE | 2016-12-16 04:07 | NUR ---
02 SATURATION DROP WHEN UP: AFTER PT EXERTED HERSELF (UP TO BEDSIDE COMMODE LAST NIGHT), HER 02 SATURATION DROPPED SIGNIFICANTLY (IN THE 80'S). PT STARTED COUGHING, WHICH INCREASED HER HEART RATE. I INCREASED PT'S OXYGEN TO 4L AND WAITED FOR PT TO RELAX, AND TO DEEP BREATH. GRADUALLY PT'S OXYGEN SATURATION AND HEART RATE RETURNED WITHIN NORMAL LIMITS. WILL CONTINUE TO MONITOR.
[2016-12-16 05:41] LABS: HCT - HEMATOCRIT 32.2 % (36-46); HGB - HEMOGLOBIN 10.7 GM/DL (12-16); MEAN CORPUSCULAR HGB 28.2 UUG (26-34); MEAN CORPUSCULAR HGB CONC(MCHC 33.2 GM/DL (31-37); MEAN PLATELET VOLUME 10.3 UM3 (9.4-12.4); RED BLOOD COUNT 3.79 M/MM3 (4.00-5.20); WBC - WHITE BLOOD COUNT 15.8 T/MM3 (4.5-11.0)
[2016-12-16 05:57] LABS: ANION GAP 13 MEQ/L (5-15); BUN/CREATININE RATIO 29 RATIO (6-26); CALCIUM 8.6 MG/DL (8.4-10.2); CHLORIDE 97 MEQ/L (98-107); CO2 - CARBON DIOXIDE 30 MEQ/L (22-30); GLOMERULAR FILTRATION RATE 53; GLUCOSE 146 MG/DL (65-110); SODIUM 140 MEQ/L (134-144)
[2016-12-16 06:32] LABS: BAND NEUTROPHILS # 0.8 T/MM3; LYMPHOCYTES # (MANUAL) 0.6 T/MM3 (1-4.8); MONOCYTES # (MANUAL) 0.6 T/MM3 (0-0.8); NEUTROPHILS #(MANUAL)-ABSOLUTE 13.7 T/MM3 (1.8-7.7); TOTAL CELLS COUNTED 100 %
[2016-12-16 06:36] LABS: ANISOCYTOSIS 1+
[2016-12-16 06:37] LABS: POIKILOCYTOSIS 1+
--- NOTE | 2016-12-16 07:53 | NUR ---
SHIFT SUMMARY: PT IS A&OX3, FRIENDLY AND COOPERATIVE, HAS A DRY COUGH, ON TELEMETRY, IV LOCKED, HAS TAWANDA. HEARING AIDES, UP WITH WALKER AND GATE BELT - USED BEDSIDE COMMODE TO RELIEVE HERSELF DURING THE NIGHT DUE TO FREQUENT TOILETING NEEDS (PT ON BUMEX). PT ON 2-3L OXYGEN NC (INCREASED NEED ON AMBULATION/PT'S O2 DROPS SIGNIFICANTLY ON AMBULATION OR DURING COUGHING SPELLS DURING MY SHIFT). CALL LIGHT WITHIN REACH, BED ALARM ON.
[2016-12-16] MEDS: ALBUTEROL/IPRATROPIUM INHAL. 2.5mg-0.5mg/3ml Neb. AEROSOL SCH ×4 (07:59→19:20)
[2016-12-16] MEDS ORDERED: POTASSIUM CHLORIDE 20 MEQ TABLET PO ONE (08:30)
[2016-12-16] MEDS: BUMETANIDE 1 MG TABLET PO SCH ×3 (08:44→22:04)
[2016-12-16] MEDS: LOSARTAN 50 MG TABLET PO SCH ×2 (08:44→22:04)
[2016-12-16] MEDS: ASPIRIN *EC* 81mg TABLET PO SCH (08:44)
[2016-12-16] MEDS: ENOXAPARIN 40 MG/0.4 ML INJECTION SQ SCH (08:46)
[2016-12-16] MEDS: LEVOFLOXACIN 500 mg IVPB 500 MG in D5W 100 ML IV SCH (08:46)
[2016-12-16] MEDS ORDERED: MILK OF MAGNESIA 30 ML SUSP PO PRN ×2 (10:00)
--- NOTE | 2016-12-16 11:54 | NUR ---
ANABELA PEÑALOZA SPOKE WITH PT NURSE WHO STATES THAT PT IS CONCERNED ABOUT RETURN HOME POST STAY AT [facility]. ANABELA EXPLAINED TO [facility] NURSE THAT PT LIVES INDEPENDENTLY [facility] BUT CM WILL FOLLOW UP SUNDAY WITH [facility]. ANABELA LEFT VM FOR NATALIIA AT PM REGARDING PT CONCERN AND WILL FOLLOW UP SUNDAY.
--- NOTE | 2016-12-16 14:32 | PNPDOC ---
RHODA HERNÁNDEZ V MEDICAL WRITER 12/16/16 1418: Subjective Date DATE: 12/16/16 TIME: 14:15 Subjective Will is seen today in follow-up. She states that she is having a lot of worry and concern about her discharge plan and whether she will be able to maintain independence. She currently resides independently living at [facility]. We discussed possibility of transitioning to more of a assistance or skilled at time of discharge. Just the significance of her current respiratory status and the fact that she is not medically stable for discharge. She is currently requiring 4-5 liters of oxygen by nasal cannula to maintain saturations. Denies having pain, appetite is good. Objective Vital Signs Vital signs Vital Signs Date Time Temp Pulse Resp B/P Pulse Ox O2 Delivery O2 Flow Rate FiO2 12/16/16 11:15 90 12/16/16 11:13 18 92 12/16/16 09:00 Nasal Cannula 5.00 12/16/16 08:01 97.6 139/88 Telemetry Rhythm: Sinus Rhythm Height (Feet): 5 Height (Inches): 4.00 Weight (Kilograms): 79.000 General General Appearance: Alert, Orientated x 3, Cooperative, No Acute Distress Eyes (Brief) Eyes: FOUND: EOMI ENMT (Brief) ENMT: FOUND: mucosa moist, normal dentition, NOT FOUND: pharnyx erythema Neck (Brief) Neck: FOUND: midline, NOT FOUND: adenopathy, carotid bruits, tracheal deviation Respiratory (Brief) Respiratory: NOT FOUND: wheezes Comments Course Cardiovascular (Brief) Cardiac: FOUND: regular rate, regular rhythm, NOT FOUND: murmur, pedal edema Capillary Refill: <2 sec Abdomen (Brief) Abdominal: FOUND: BS normo active x4, soft, NOT FOUND: distended, tender Lymphatic (Brief) Lymphatic: NOT FOUND: adenopathy Musculoskeletal (Brief) Musculoskeletal: NOT FOUND: tenderness Integumentary (Brief) Integumentary: FOUND: dry, pink, warm Neurologic (Brief) Neurological: FOUND: cranial 2-12 intact Psychiatric (Brief) Psychiatric: FOUND: alert, attentive, normal affect, oriented Laboratory Laboratory Laboratory Tests 12/15/16 04:50 12/16/16 04:13 Laboratory Tests 12/15/16 04:50 12/16/16 04:13 Microbiology Microbiology Microbiology Date/Time Source Procedure Growth Status 12/14/16 11:20 Peripheral/Iv Start Blood Culture - Preliminary NO GROWTH AFTER 48 HOURS Resulted 12/14/16 11:19 Peripheral/Iv Start Blood Culture - Preliminary NO GROWTH AFTER 48 HOURS Resulted Assessment & Plan Problems: (1) Sepsis Status: Acute Assessment & Plan: Manifestations of sepsis include the following 1. Pneumonia 2. Respiratory failure with hypoxia requiring oxygen to maintain saturations 3. Leukocytosis, WBC count 15 (2) CAP (community acquired pneumonia) Status: Acute (3) Respiratory failure with hypoxia Status: Acute Qualifiers: Chronicity: acute Qualified Codes: J96.01 - Acute respiratory failure with hypoxia (4) Leukocytosis Status: Acute Assessment & Plan: Present on admission (5) Elevated LFTs Status: Acute (6) Hypokalemia Status: Acute Assessment & Plan: Present on admission (7) CAD (coronary artery disease) of bypass graft Onset Date: ~ 06/2016 Status: Chronic Qualifiers: [place] vs. transplanted heart: [place] heart Associated angina: angina presence unspecified Qualified Codes: I25.810 - Atherosclerosis of coronary artery bypass graft(s) without angina pectoris (8) HTN (hypertension) Status: Chronic Qualifiers: Hypertension type: essential hypertension Qualified Codes: I10 - Essential (primary) hypertension Assessment Plan/Intensity of Service 12/16 She continues to require 4-5 liters . Will work on weaning down as able. White count slightly to 15.8 today. Will continue with Levaquin IV daily and will add Rocephin for broader coverage. Hypokalemia, K down to 3.0. Given 40 meq this morning and then will schedule 20meq a daily Continue with Bumex 3 times a day for diuresing. Appreciate cardiology consolation Will recheck LFTs tomorrow morning. Reassured patient that she is not medically at a point to be discharged in the next several days. At that time we will discuss with case management regarding options of home health versus assisted living/skilled. This seemed to alleviate patient's anxiety. Will recheck CBC and CMP tomorrow to follow blood counts, renal function, LFTs Code Status Do Not Resuscitate Hospital Course Summary Disclaimer The hospital course summary below is not to be considered part of the above Progress Note. Hospital Course Summary Admit patient to inpatient status under the care of Dr. Hough for sepsis, community-acquired pneumonia with hypoxia Patient does meet sepsis criteria, given findings of pneumonia, hypoxia and leukocytosis. Will obtain venous lactate and pro-calcitonin on admission. Blood cultures were obtained in the emergency room. Patient started on Rocephin 1 gram IV daily as well as a azithromycin 500 milligrams IV daily for antimicrobial coverage. Will monitor elevated LFTs. It may be elevated from systemic response to sepsis process Continue with oxygen therapy to maintain adequate saturations. Will also scheduled DuoNeb breathing treatments 4 times a day Will obtain an Echocardiogram for further cardiac evaluation Give a one time dose of Lasix 20 mg IV for fluid motivation. May need scheduled diuresis seen. Monitor patient on cardiac telemetry SCDs to bilateral lower ext for DVT prophylaxis Have asked nursing staff to old records from Anish's office. Patient states that she did have a ECHO in the beginning of 2016. Recehck CBC and CMP tomorrow to follow blood counts, renal function, electrolytes and LFT. PORT score mortality risk indicator showing 9.3% of mortality related to infection Again patient requests DNR and this order is written. Will discuss further plan of care with attending, Dr. Hough. At time of discharge medical care will return to primary care provider, Dr. Miller 12/15 Overall breathing feels about the same to Ruth Currently on 4 liters of oxygen. Will work on weaning down as able. Schedule Duoneb breathing treatments QID Continue with Bumex 1 mg IV every 8 hours for aggressive diuresing. Appreciate cardiology consultation by Dr Garland. Will recheck Chest X-ray tomorrow to follow failure verses pneumonia Leukocytosis slightly improved to 13.5. LFTs are trending down. Continue to follow. Continue Levaquin for pulmonary antimicrobial coverage. Preliminary blood cultures negative. 12/16 She continues to require 4-5 liters . Will work on weaning down as able. White count slightly to 15.8 today. Will continue with Levaquin IV daily and will add Rocephin for broader coverage. Hypokalemia, K down to 3.0. Given 40 meq this morning and then will schedule 20meq a daily Continue with Bumex 3 times a day for diuresing. Appreciate cardiology consolation Will recheck LFTs tomorrow morning. Reassured patient that she is not medically at a point to be discharged in the next several days. At that time we will discuss with case management regarding options of home health versus assisted living/skilled. This seemed to alleviate patient's anxiety. Will recheck CBC and CMP tomorrow to follow blood counts, renal function, LFTs ALLYSON HOUGH MD 12/16/16 1712: Assessment & Plan Code Status Patient seen and examined by me today. Agree with history and physical assessment and plan by nurse practitioner Rhoda Hernández. Patient has had difficultly thick upper respiratory mucus. Adding saline and short course of guaifenesin for symptomatic relief. Hopefully this decline in oxygen status is related to this and does not tied to the climbing white blood cell count, however due to this we've added Rocephin to the levofloxacin already running RHODA HERNÁNDEZ APRN December 16, 2016 14:18 ALLYSON HOUGH MD December 16, 2016 17:12
[2016-12-16] MEDS ORDERED: CEFTRIAXONE 1 G in NORMAL SALINE 100 ML IV SCH (15:00)
[2016-12-16] MEDS ORDERED: NORMAL SALINE 500 ML IV PRN (15:30)
--- NOTE | 2016-12-16 16:34 | NUR ---
O2 sats Pt dipped to 70's while getting V/S, placed on simple mask. Pt has been coughing up thicker opaque sputum tinged with pink blood. Called RT, suggested acepella. Talked with dr Hough and received N.O. for acepella, NS nasal spray and muscnex. After TX able to put pt back to 5L still on simple mask R/T mouth breathing. Pt comfortable at this time, will continue to monitor.
[2016-12-16] MEDS: SALINE NASAL SPRAY 45ml EA NOSTRIL PRN (18:36)
[2016-12-16] MEDS: ONDANSETRON 4mg/2ml INJECTION IV PRN (18:39)
[2016-12-16] MEDS ORDERED: ALBUTEROL INH.SOLN. 2.5mg/3ml (0.083%) Neb. AEROSOL PRN (20:00)
--- NOTE | 2016-12-16 20:15 | NUR ---
status Pt A/O x3, V/S stable except for O2. Have been using HF NC and simple mask past 4 hrs. Pt denies SOA, sats do dip very low after ambulation. Pt denies pain and no PRN pain meds. !x she state nausea, PRN zofran given. Ambulates with 1x assist stand and pivot to BSC, very weak legs. Low appitite, drinking well. Pt has been depressed R/T she just doesn't think she getting better to go home.
[2016-12-16] MEDS: GUAIFENESIN 400 MG TABLET PO SCH (22:04)
[2016-12-16] MEDS ORDERED: LORAZEPAM 0.5 MG TABLET PO ONE (22:30)
[2016-12-17] VITALS (17 sets, daily range): BP systolic 114–145; BP diastolic 55–65; PULSE 71–101; RESP 29–46; TEMP 96.7–97; O2SAT 49–100
[2016-12-17 05:58] LABS: HCT - HEMATOCRIT 34.2 % (36-46); HGB - HEMOGLOBIN 11.3 GM/DL (12-16); MEAN CORPUSCULAR HGB 28.4 UUG (26-34); MEAN CORPUSCULAR VOLUME 85.9 UM3 (80-100); MEAN PLATELET VOLUME 9.8 UM3 (9.4-12.4); RED BLOOD COUNT 3.98 M/MM3 (4.00-5.20); WBC - WHITE BLOOD COUNT 18.2 T/MM3 (4.5-11.0)
[2016-12-17 06:10] LABS: ALBUMIN 3.3 G/DL (3.5-5.0); ALKALINE PHOSPHATASE 138 U/L (38-126); ALT (SGPT) 124 U/L (9-52); ANION GAP 10 MEQ/L (5-15); AST (SGOT) 91 U/L (14-36); BUN/CREATININE RATIO 27 RATIO (6-26); CHLORIDE 94 MEQ/L (98-107); CO2 - CARBON DIOXIDE 37 MEQ/L (22-30); CREATININE 0.7 MG/DL (0.7-1.2); GLOMERULAR FILTRATION RATE 80; GLUCOSE 168 MG/DL (65-110); POTASSIUM 3.5 MEQ/L (3.6-5); SODIUM 141 MEQ/L (134-144); TOTAL PROTEIN 6.5 G/DL (6.3-8.2)
[2016-12-17 06:22] LABS: EOSINOPHILS # (MANUAL) 0.2 T/MM3 (0-0.5); LYMPHOCYTES # (MANUAL) 0.5 T/MM3 (1-4.8); MONOCYTES # (MANUAL) 0.2 T/MM3 (0-0.8); NEUTROPHILS #(MANUAL)-ABSOLUTE 17.3 T/MM3 (1.8-7.7); TOTAL CELLS COUNTED 100 %
[2016-12-17 06:24] LABS: OVALOCYTES 1+; POIKILOCYTOSIS 1+; SCHISTOCYTES 1+; TEAR DROP CELLS 1+
--- NOTE | 2016-12-17 06:29 | NUR ---
shift summary pt is a/o x3 and has not had below 10L nonrebreather mask throughout shift. pt has significant drop into 60's in o2 sat upon getting up to BSC and requires 15L while on nonbreather and 3-5 minutes to recover o2 sat to 92-94%. pt started on mucinex 400mg PO BID and various breathing tx. pt continues to have productive cough with very thick sputum with pink tinge noted which is consistent with what day shift reported. pt o2 sat especially with any type of movement noted during shift has not improved spoke with Dr. Hough at shift change about doing ABG r/t pt's continued nonimprovement in oxygen demand. physician did not want to do ABG's at that time. pt doesn't complain of pain but appears significantly fatigued and voiced concerns during shift about "not feeling like I'm getting any better" and that this made her feel "very scared" about her illness at this time. output has been adequate. SR on telemetry.
[2016-12-17] MEDS: ALBUTEROL/IPRATROPIUM INHAL. 2.5mg-0.5mg/3ml Neb. AEROSOL SCH ×2 (07:00→11:00)
[2016-12-17] MEDS ORDERED: POTASSIUM CHLORIDE 20 MEQ TABLET PO SCH (08:00)
--- NOTE | 2016-12-17 08:00 | NUR ---
status Pt A/O x3, V/S taken and needing O2 increased to 15L HF to maintain 90%. Pt ambulated to BSC then chair, very fatiuged with O2 dropping to 70%. Talked with RT, and did get order to put on bipap from Brandan Interiano.
[2016-12-17] MEDS: ASPIRIN *EC* 81mg TABLET PO SCH (08:57)
[2016-12-17] MEDS: LOSARTAN 50 MG TABLET PO SCH (08:57)
[2016-12-17] MEDS: GUAIFENESIN 400 MG TABLET PO SCH (08:58)
[2016-12-17] MEDS: BUMETANIDE 1 MG TABLET PO SCH (08:58)
[2016-12-17] MEDS: LEVOFLOXACIN 500 mg IVPB 500 MG in D5W 100 ML IV SCH (08:58)
[2016-12-17] MEDS: SALINE NASAL SPRAY 45ml EA NOSTRIL PRN (08:59)
[2016-12-17] MEDS: ENOXAPARIN 40 MG/0.4 ML INJECTION SQ SCH (08:59)
[2016-12-17] MEDS ORDERED: LORAZEPAM 2 MG/ML INJECTION IV PRN (09:00)
[2016-12-17] MEDS ORDERED: GUAIFENESIN 400 MG TABLET PO SCH (09:00)
--- NOTE | 2016-12-17 09:29 | PNPDOC ---
RHODA HERNÁNDEZ V DIRECTOR OF PRIMARY CARE 12/17/16 0924: Subjective Date DATE: 12/17/16 TIME: 09:17 Subjective Ruth is seen early this morning following notification from RT regarding increased oxygen needs. She is up in the chair and in moderate respiratory distress. She is requiring 10-15 liters of oxygen to maintain saturations and is having significant increase in respiratory secretions. She denies having any pain currently however appears fatigued. Noted to be mildly tachycardic at 110 on examination. BP 114/58. Objective Vital Signs Vital signs Vital Signs Date Time Temp Pulse Resp B/P Pulse Ox O2 Delivery O2 Flow Rate FiO2 12/17/16 08:34 96 91 Spontaneous/Timed 50 12/17/16 08:24 96.7 30 114/58 14.00 Telemetry Rhythm: Sinus Rhythm Height (Feet): 5 Height (Inches): 4.00 Weight (Kilograms): 79.000 General General Appearance: Alert, Orientated x 3, Cooperative, No Acute Distress Eyes (Brief) Eyes: FOUND: EOMI ENMT (Brief) ENMT: FOUND: mucosa moist, normal dentition, NOT FOUND: pharnyx erythema Neck (Brief) Neck: FOUND: midline, NOT FOUND: adenopathy, carotid bruits, tracheal deviation Respiratory (Brief) Respiratory: NOT FOUND: wheezes Comments course breath sounds throughout Cardiovascular (Brief) Cardiac: FOUND: regular rate, regular rhythm, NOT FOUND: murmur, pedal edema Capillary Refill: <2 sec Abdomen (Brief) Abdominal: FOUND: BS normo active x4, soft, NOT FOUND: distended, tender Lymphatic (Brief) Lymphatic: NOT FOUND: adenopathy Musculoskeletal (Brief) Musculoskeletal: NOT FOUND: tenderness Integumentary (Brief) Integumentary: FOUND: dry, pink, warm Neurologic (Brief) Neurological: FOUND: cranial 2-12 intact Psychiatric (Brief) Psychiatric: FOUND: alert, attentive, normal affect, oriented Laboratory Laboratory Laboratory Tests 12/16/16 04:13 12/17/16 05:29 Laboratory Tests 12/16/16 04:13 12/17/16 05:29 Microbiology Microbiology Microbiology Date/Time Source Procedure Growth Status 12/14/16 11:20 Peripheral/Iv Start Blood Culture - Preliminary NO GROWTH AFTER 48 HOURS Resulted 12/14/16 11:19 Peripheral/Iv Start Blood Culture - Preliminary NO GROWTH AFTER 48 HOURS Resulted Assessment & Plan Problems: (1) Sepsis Status: Acute Assessment & Plan: Manifestations of sepsis include the following 1. Pneumonia 2. Respiratory failure with hypoxia requiring oxygen to maintain saturations 3. Leukocytosis, WBC count 15 (2) CAP (community acquired pneumonia) Status: Acute (3) Respiratory failure with hypoxia Status: Acute Qualifiers: Chronicity: acute Qualified Codes: J96.01 - Acute respiratory failure with hypoxia (4) Leukocytosis Status: Acute Assessment & Plan: Present on admission (5) Elevated LFTs Status: Acute (6) Hypokalemia Status: Acute Assessment & Plan: Present on admission (7) CAD (coronary artery disease) of bypass graft Onset Date: ~ 06/2016 Status: Chronic Qualifiers: [place] vs. transplanted heart: [place] heart Associated angina: angina presence unspecified Qualified Codes: I25.810 - Atherosclerosis of coronary artery bypass graft(s) without angina pectoris (8) HTN (hypertension) Status: Chronic Qualifiers: Hypertension type: essential hypertension Qualified Codes: I10 - Essential (primary) hypertension Assessment Plan/Intensity of Service 12/17 Respiratory failure has worsened overnight and she is now requiring 10-15 liters of oxygen by nasal cannula/mask to maintain saturations. Will place patient on BiPAP now Add IV steroids for pulmonary inflammation, Solu-Medrol 125 mg IV every 6 hours scheduled. Given continued Leukocytosis as well as worsening Pneumonia on chest xray will change antimicrobial coverage to meropenem. Will discontinue Levaquin and Rocephin. Given worsening in overall patient status. Will move patient to the ICU for more critical care. Recheck CBC and CMP again tomorrow. Noted LFTs have elevated which may be related to severity of infection/sepsis. Chest X-ray reviewed by myself and Dr Hough. Discussed plan with Dr Hough Code Status Do Not Resuscitate Hospital Course Summary Disclaimer The hospital course summary below is not to be considered part of the above Progress Note. Hospital Course Summary Admit patient to inpatient status under the care of Dr. Hough for sepsis, community-acquired pneumonia with hypoxia Patient does meet sepsis criteria, given findings of pneumonia, hypoxia and leukocytosis. Will obtain venous lactate and pro-calcitonin on admission. Blood cultures were obtained in the emergency room. Patient started on Rocephin 1 gram IV daily as well as a azithromycin 500 milligrams IV daily for antimicrobial coverage. Will monitor elevated LFTs. It may be elevated from systemic response to sepsis process Continue with oxygen therapy to maintain adequate saturations. Will also scheduled DuoNeb breathing treatments 4 times a day Will obtain an Echocardiogram for further cardiac evaluation Give a one time dose of Lasix 20 mg IV for fluid motivation. May need scheduled diuresis seen. Monitor patient on cardiac telemetry SCDs to bilateral lower ext for DVT prophylaxis Have asked nursing staff to old records from [facility]'s office. Patient states that she did have a ECHO in the beginning of 2016. Recehck CBC and CMP tomorrow to follow blood counts, renal function, electrolytes and LFT. PORT score mortality risk indicator showing 9.3% of mortality related to infection Again patient requests DNR and this order is written. Will discuss further plan of care with attending, Dr. Hough. At time of discharge medical care will return to primary care provider, Dr. Miller 12/15 Overall breathing feels about the same to Ruth Currently on 4 liters of oxygen. Will work on weaning down as able. Schedule Duoneb breathing treatments QID Continue with Bumex 1 mg IV every 8 hours for aggressive diuresing. Appreciate cardiology consultation by Dr Garland. Will recheck Chest X-ray tomorrow to follow failure verses pneumonia Leukocytosis slightly improved to 13.5. LFTs are trending down. Continue to follow. Continue Levaquin for pulmonary antimicrobial coverage. Preliminary blood cultures negative. 12/16 She continues to require 4-5 liters . Will work on weaning down as able. White count slightly to 15.8 today. Will continue with Levaquin IV daily and will add Rocephin for broader coverage. Hypokalemia, K down to 3.0. Given 40 meq this morning and then will schedule 20meq a daily Continue with Bumex 3 times a day for diuresing. Appreciate cardiology consolation Will recheck LFTs tomorrow morning. Reassured patient that she is not medically at a point to be discharged in the next several days. At that time we will discuss with case management regarding options of home health versus assisted living/skilled. This seemed to alleviate patient's anxiety. Will recheck CBC and CMP tomorrow to follow blood counts, renal function, LFTs 12/17 Respiratory failure has worsened overnight and she is now requiring 10-15 liters of oxygen by nasal cannula/mask to maintain saturations. Will place patient on BiPAP now Add IV steroids for pulmonary inflammation, Solu-Medrol 125 mg IV every 6 hours scheduled. Given continued Leukocytosis as well as worsening Pneumonia on chest xray will change antimicrobial coverage to meropenem. Will discontinue Levaquin and Rocephin. Given worsening in overall patient status. Will move patient to the ICU for more critical care. Recheck CBC and CMP again tomorrow. Noted LFTs have elevated which may be related to severity of infection/sepsis. ALLYSON HOUGH MD 12/18/16 0901: Assessment & Plan Assessment Seen and examined patient. Agree with above subjective objective assessment and plan outlined by nurse practitioner Rhoda Hernández. Patient's medical condition is concerning and I have discussed transfer with via [facility]. Please see discharge summary for further details RHODA HERNÁNDEZ APRN December 17, 2016 09:24 ALLYSON HOUGH MD December 18, 2016 09:01
--- NOTE | 2016-12-17 09:55 | NUR ---
ARRIVAL TO CCU Patient arrives to CCU on 15L per high flow nasal cannula- bipap interrupted for the transfer. Chago is alert and oriented, discussed surroundings and call light use. Levaquin infuses.
[2016-12-17] MEDS ORDERED: NORMAL SALINE IV SCH (10:00)
[2016-12-17] MEDS ORDERED: MEROPENEM IV SCH (10:00)
--- NOTE | 2016-12-17 10:00 | NUR ---
status Pt tolerating bipap well, taken off to eat breakfast. Low appitite, drinking well. N.O. to transfer pt to CCU proactively, explained to pt reason for doing. Talked with pt son. All belongings gathered and taken to CCU at 0950 via on 15 L. Report given to Arin. Pt denies pain at this time and no PRN meds given. Dr Hough in to see pt be fore transfer.
--- NOTE | 2016-12-17 10:20 | NUR ---
DRINK Patient has a drink of water, followed by a small coughing spell. Sats dropped briefly, then returned to greater than 90%. Have reported this to Dr Hough.
--- NOTE | 2016-12-17 10:43 | NUR ---
TRANSFER PLANS The physician has spoken with the patient, and how her son in [place] regarding transfer to [place]. Nursing is waiting for a call back from [facility] with bed placement.
--- NOTE | 2016-12-17 10:46 | NUR ---
O2 SATS, BIPAP After patient transitioned to the Bipap from nasal cannula, sats dropped for several minutes into the 60's and 70's. RT was in the room and physician at bedside. Sats increased gradually and now are 100% on 100% FiO2, IPAP 15, EPAP 7.
--- NOTE | 2016-12-17 10:54 | NUR ---
BED PLACEMENT Bed placement obtained in CTICU Room 1.
--- NOTE | 2016-12-17 11:20 | NUR ---
MEDS New IV site obtained prior to new orders for Solumedrol and new antibiotic administration, meds now started.
[2016-12-17] MEDS ORDERED: POTA20TA10 PO (11:47)
[2016-12-17] MEDS ORDERED: BUME1TAB17 PO (11:47)
[2016-12-17] MEDS ORDERED: ENOX40DI SQ (11:47)
[2016-12-17] MEDS ORDERED: IPRA3AMP AEROSOL (11:47)
[2016-12-17] MEDS ORDERED: METH125V14 IV (11:47)
[2016-12-17] MEDS ORDERED: [UNRECOGNIZED DRUG - CODE] PO (11:47)
[2016-12-17] MEDS ORDERED: ASPI-1085 PO (11:47)
[2016-12-17] MEDS ORDERED: MERO1PIG IV (11:48)
--- NOTE | 2016-12-17 12:18 | NUR ---
TOILETING Up to bedside commode recently. Sats dropped again into the 70's, recovered gradually.
--- NOTE | 2016-12-17 12:55 | NUR ---
REPORT Transfer report has been called to Amanda LICEA in [place] ICU at [facility]. EMS has arrived.
--- NOTE | 2016-12-17 13:15 | DI ---
INDICATION: ITS.REASON: worsening dyspnea PROCEDURE: CHEST 2-VIEWS UPRIGHT (PA \T\ LAT) Encounter: Initial COMPARISON: December 15, 2016 FINDINGS: Worsening diffuse bilateral airspace consolidation. No obvious pneumothorax. Small pleural effusions. Heart size is obscured by the pulmonary process. Mediastinal contours and pulmonary vascularity are also not well seen. Postoperative changes of prior CABG. Impression: Worsening bilateral airspace disease could be due to severe edema, widespread pneumonia, pulmonary hemorrhage or developing ARDS. .
--- NOTE | 2016-12-17 13:17 | NUR ---
TRANSFER Patient departed [facility] for [facility] at 1314 with portable Bipap.
--- NOTE | 2016-12-17 18:37 | DSPDOC ---
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 Procedures Echocardiogram did show signs of poor lung compliance with "Mild tricuspid regurgitation with [id number] pulmonary hypertension with estimated pulmonary artery systolic pressure of 69." Laboratory Laboratory Tests Test 12/17/16 05:29 White Blood Count 18.2T/MM3 (4.5-11.0) Red Blood Count 3.98M/MM3 (4.00-5.20) Hemoglobin 11.3GM/DL (12-16) Hematocrit 34.2% (36-46) Mean Corpuscular Volume 85.9UM3 (80-100) Mean Corpuscular Hemoglobin 28.4UUG (26-34) Mean Corpuscular Hemoglobin Concent 33.0GM/DL (31-37) RDW Standard Deviation 48.6FL (36.9-50.2) Platelet Count 300T/MM3 (130-400) Mean Platelet Volume 9.8UM3 (9.4-12.4) Immature Granulocyte % (Auto) % (0.0-0.5) Neutrophils (%) (Auto) % (33-66) Lymphocytes (%) (Auto) % (23-45) Monocytes (%) (Auto) % (0-9.0) Eosinophils (%) (Auto) % (0-4) Basophils (%) (Auto) % (0-2) Absolute Immature Granulocyte (auto T/MM3 (0.00-0.03) Absolute Neutrophils (auto) T/MM3 (1.8-7.7) Absolute Lymphocytes (auto) T/MM3 (1-4.8) Absolute Monocytes (auto) T/MM3 (0-0.8) Absolute Eosinophils (auto) T/MM3 (0-0.5) Absolute Basophils (auto) T/MM3 (0-0.2) Neutrophils % (Manual) 95.0% (33-66) Lymphocytes % (Manual) 3.0% (23-45) Monocytes % (Manual) 1.0% (0-9.0) Eosinophils % (Manual) 1.0% (0-4) Absolute Neutrophils (Manual) 17.3T/MM3 (1.8-7.7) Lymphocytes # (Manual) 0.5T/MM3 (1-4.8) Monocytes # (Manual) 0.2T/MM3 (0-0.8) Eosinophils # (Manual) 0.2T/MM3 (0-0.5) Poikilocytosis 1+ Tear Drop Cells 1+ Ovalocytes 1+ Schistocytes 1+ Red Cell Morphology Comment Abnormal Turbidity < 20 (0-20) Sodium Level 141MEQ/L (134-144) Potassium Level 3.5MEQ/L (3.6-5) Chloride Level 94MEQ/L (98-107) Carbon Dioxide Level 37MEQ/L (22-30) Anion Gap 10MEQ/L (5-15) Blood Urea Nitrogen 19.0MG/DL (7-17) Creatinine 0.7MG/DL (0.7-1.2) Glomerular Filtration Rate Calc 80 BUN/Creatinine Ratio 27RATIO (6-26) Glucose Level 168MG/DL (65-110) Calculated Osmolality 277MOSM/KG (261-280) Calcium Level 9.0MG/DL (8.4-10.2) Total Bilirubin 1.20MG/DL (0.20-1.30) Icterus Index < 2 (0-7) Aspartate Amino Transf (AST/SGOT) 91U/L (14-36) Alanine Aminotransferase (ALT/SGPT) 124U/L (9-52) Alkaline Phosphatase 138U/L (38-126) Total Protein 6.5G/DL (6.3-8.2) Albumin 3.3G/DL (3.5-5.0) Globulin 3.2G/DL (2.4-3.6) Albumin/Globulin Ratio 1.0RATIO (1.1-2.2) Chemistry Specimen Hemolysis < 15 (0-25) Radiology Final interpretation of radiology corroborated my concern of ARDS History of Present Illness Ruth is a 81 yr old female who presented to PCP Dr Miller office today for evaluation. She was found to be hypoxia in the 60's. She was then sent to [facility] emergency room for further medical evaluation. On arrival to the emergency room. She was found to be hypoxic with room air saturations of 78%. Her temperature is 99.8, pulse rate in the 60s, respiration rate 24, blood pressure was elevated at 196/88. Further medical evaluation was obtained , including laboratory studies, chest x-ray and CT scan. Patient was found have an elevated white count at 15.4, hemoglobin 11.9, hematocrit 36.7, platelet count 309, neutrophils 86%. Sodium is 144, potassium 3.3, BUN 11, creatinine 0.5, glucose 152. LFTs were found to be elevated with AST of 70 and ALT of 102. ProBNP 4820, troponin 0.019. INR 1.16, d-dimer 414. Chest x-ray did reveal bilateral patchy airspace opacities representing edema or pneumonia. Given her significant hypoxia and elevated d-dimer. ABG revealed pH 7.52, pCO2 36, pO2 65, bicarbonate 29. A CT scan of the chest was performed. No evidence of pulmonary emboli. However, again, diffuse groundglass opacities bilaterally. Continue to require oxygen by nasal cannula to maintain adequate saturations. She did get up and ambulate to the bathroom with staff. However, upon returning sats did decrease to 70%. Patient approximately 15 minutes on oxygen to recover to normal saturations. Given these findings, Hospital services were contacted and accepted patient for inpatient mission for further eval patient and treatment. Seen on initial examination. She is alert, oriented and pleasant. She reports that she has felt more short of breath for the last 2-3 days. She denies having any fevers or chills, no chest pain, or GI complaints. She states that she sees Dr. Octavio Oconnell liquor tester in [place]. She reports that she had an echocardiogram in the beginning of 2016. She states that overall she has been doing well since her bypass in June 2016. Her Lasix has been discontinued by the liquor tester as she was instructed that she did not need it any longer. We did discuss advanced directives and she does wish to be a do not resuscitate Hospital Course Admit patient to inpatient status under the care of Dr. Hough for sepsis, community-acquired pneumonia with hypoxia Patient does meet sepsis criteria, given findings of pneumonia, hypoxia and leukocytosis. Will obtain venous lactate and pro-calcitonin on admission. Blood cultures were obtained in the emergency room. Patient started on Rocephin 1 gram IV daily as well as a azithromycin 500 milligrams IV daily for antimicrobial coverage. Will monitor elevated LFTs. It may be elevated from systemic response to sepsis process Continue with oxygen therapy to maintain adequate saturations. Will also scheduled DuoNeb breathing treatments 4 times a day Will obtain an Echocardiogram for further cardiac evaluation Give a one time dose of Lasix 20 mg IV for fluid motivation. May need scheduled diuresis seen. Monitor patient on cardiac telemetry SCDs to bilateral lower ext for DVT prophylaxis Have asked nursing staff to old records from [facility] office. Patient states that she did have a ECHO in the beginning of 2016. Recehck CBC and CMP tomorrow to follow blood counts, renal function, electrolytes and LFT. PORT score mortality risk indicator showing 9.3% of mortality related to infection Again patient requests DNR and this order is written. Will discuss further plan of care with attending, Dr. Hough. At time of discharge medical care will return to primary care provider, Dr. Miller 12/15 Overall breathing feels about the same to Ruth Currently on 4 liters of oxygen. Will work on weaning down as able. Schedule Duoneb breathing treatments QID Continue with Bumex 1 mg IV every 8 hours for aggressive diuresing. Appreciate cardiology consultation by Dr Cruz. Will recheck Chest X-ray tomorrow to follow failure verses pneumonia Leukocytosis slightly improved to 13.5. LFTs are trending down. Continue to follow. Continue Levaquin for pulmonary antimicrobial coverage. Preliminary blood cultures negative. 12/16 She continues to require 4-5 liters . Will work on weaning down as able. White count slightly to 15.8 today. Will continue with Levaquin IV daily and will add Rocephin for broader coverage. Hypokalemia, K down to 3.0. Given 40 meq this morning and then will schedule 20meq a daily Continue with Bumex 3 times a day for diuresing. Appreciate cardiology consolation Will recheck LFTs tomorrow morning. Reassured patient that she is not medically at a point to be discharged in the next several days. At that time we will discuss with case management regarding options of home health versus assisted living/skilled. This seemed to alleviate patient's anxiety. Will recheck CBC and CMP tomorrow to follow blood counts, renal function, LFTs 12/17 Respiratory failure has worsened overnight and she is now requiring 10-15 liters of oxygen by nasal cannula/mask to maintain saturations. Will place patient on BiPAP now Add IV steroids for pulmonary inflammation, Solu-Medrol 125 mg IV every 6 hours scheduled. Given continued Leukocytosis as well as worsening Pneumonia on chest xray will change antimicrobial coverage to meropenem. Will discontinue Levaquin and Rocephin. Given worsening in overall patient status, patient moved to ICU Patient personally managed today with critical care time exceeding 35 minutes. Chest x-ray personally reviewed by me today and concerning for development of ARDS. By 10:30 AM I had contacted via [facility] in [place] and spoken to Dr. Ascencio and Dain Ron, the hospitalist and speech therapy teacher respectively. My appreciation to their willingness to accept this patient for what I believe is developing ARDS. She is transferring to a higher level of care for pulmonary critical care needs. Christos Hough MD Problems: (1) Sepsis Status: Acute Assessment & Plan: Manifestations of sepsis include the following 1. Pneumonia 2. Respiratory failure with hypoxia requiring oxygen to maintain saturations 3. Leukocytosis, WBC count 15 (2) CAP (community acquired pneumonia) Status: Acute (3) Respiratory failure with hypoxia Status: Acute (4) Leukocytosis Status: Acute Assessment & Plan: Present on admission (5) Elevated LFTs Status: Acute (6) Hypokalemia Status: Acute Assessment & Plan: Present on admission (7) CAD (coronary artery disease) of bypass graft Onset Date: ~ 06/2016 Status: Chronic (8) HTN (hypertension) Status: Chronic Code Status Do Not Resuscitate Home Meds Active Scripts Meropenem-0.9% Sodium Chloride (Meropenem-0.9% NaCl 1 Gram/50) 1 Gm/50 Ml Piggyback, 1 G IV Q8H for 7 Days Prov:RHODA HERNÁNDEZ APRN 12/17/16 Methylprednisolone Sod Succ/Pf (Solu-Medrol 125 mg Vial) 125 Mg/2 Ml Vial, 125 MG IV Q6HR for 7 Days, VIAL Prov:RHODA HERNÁNDEZ APRN 12/17/16 Guaifenesin (Mucus Relief) 400 Mg Tablet, 400 MG PO BID for 10 Days, #20 TAB Prov:RHODA HERNÁNDEZ APRN 12/17/16 Potassium Chloride (Klor-Con M20) 20 Meq Tablet, 20 MEQ PO WB for 10 Days, #10 TAB Prov:RHODA HERNÁNDEZ Lisa GOMEZ 12/17/16 Bumetanide (Bumetanide) 1 Mg Tablet, 1 MG PO TID for 10 Days, #30 TAB Prov:RHODA HERNÁNDEZ V JASON 12/17/16 Aspirin *EC* (Aspirin EC) 81 Mg Tablet.dr, 81 MG PO DAILY for 10 Days, #10 TAB Prov:TUNICA-BILOXIRHODA CHINCHILLA APRN 12/17/16 Enoxaparin Sodium (Lovenox) 40 Mg/0.4 Ml Inj, 40 MG SQ DAILY for 10 Days Prov:TUNICA-BILOXIRHODA CHINCHILLA APRN 12/17/16 Ipratropium/Albuterol Sulfate (Iprat-Albut 0.5-3(2.5) mg/3 ml) 3 Ml Ampul.neb, 3 ML AEROSOL RTQID for 30 Days Prov:BRUNILDA HERNÁNDEZKARUNA Gonzalez APRN 12/17/16 Reported Medications Acetaminophen (Acetaminophen) 500 Mg Tablet, 1000 MG PO Q8H Y for PAIN 12/14/16 Venlafaxine HCl (Venlafaxine HCl ER) 37.5 Mg Cap.er.24h, 37.5 MG PO HS 12/14/16 Losartan Potassium (Losartan Potassium) 100 Mg Tablet, 50 MG PO BID 12/14/16 Metoprolol Tartrate (Metoprolol Tartrate) 50 Mg Tablet, 50 MG PO BID 12/14/16 Lorazepam (Lorazepam) 0.5 Mg Tablet, 0.5 MG PO TID Y for ANXIETY 12/14/16 Nitroglycerin (Nitroglycerin) 0.4 Mg Tab.subl, 0.4 MG PO Q5MIN Y for CHEST PAIN 12/14/16 Discontinued Reported Medications Atorvastatin Calcium (Atorvastatin Calcium) 80 Mg Tablet, 80 MG PO HS 12/14/16 Amiodarone HCl (Amiodarone HCl) 200 Mg Tablet, 200 MG PO BID 12/14/16 Face to Face Encounter I met with patient on the day of dismissal and discussed follow up appointments , medications, and safety plan. Discharge Disposition Guarded and poor thus she is going to higher level of care and [facility] in [place] Copies To 1: MUSTAPHA CRUZ MD, JONATHAN P MD December 17, 2016 17:56
== END 2016-12-17 13:14 | disposition short-term general hospital (02) | DRG 871 ==
LOC: ED 09:49 → EDHOLD 13:27 → MED 14:32 → CCU 12-17 09:55
PROVIDERS: ADMIT Family Medicine; ATTEND Family Medicine
PROC: 5A09357 Assistance with Respiratory Ventilation, Less than 24 Consecutive Hours, Continuous Positive Airway Pressure (ICD-10-PCS; principal; 2016-12-17)
DX: A41.9 Sepsis, unspecified organism (principal); J18.9 Pneumonia, unspecified organism; J96.01 Acute respiratory failure with hypoxia; I50.31 Acute diastolic (congestive) heart failure; E87.6 Hypokalemia; I11.0 Hypertensive heart disease with heart failure; I25.10 Atherosclerotic heart disease of native coronary artery without angina pectoris; I27.2 Other secondary pulmonary hypertension; Z66 Do not resuscitate; Z95.1 Presence of aortocoronary bypass graft
CPT/HCPCS: 36415; 80048; 80053; 82803; 83605; 83880; 84145; 84484; 85025; 85379; 85610; 87040; 93005; 93306; 94002; 94640; 94667; 94668